=== PATIENT | female | born 1995 | race Caucasian/White ===

== ENCOUNTER 2016-02-28 16:50 | Emergency (ER) | payer MEDICAID ==
--- NOTE | 2016-02-28 19:19 | ER Document Report ---
ED Oral Problem - General Chief Complaint: Toothache Stated Complaint: MOUTH PAIN Time seen by provider: 19:13 Mode of Arrival: Ambulatory Information source: Patient Notes: 21-year-old female presents to ED for toothache and her bottom left jaw #19 for a couple months states it became worse for the last 2 days TRAVEL OUTSIDE OF THE [place] IN LAST 30 DAYS: No - HPI Patient complains to provider of: Jaw pain, Toothache Onset: Other - Couple months worse for the last 2 days Onset: Gradual Quality of pain: Pressure, Sharp, Throbbing Severity: Moderate Pain Level: 4 Associated symptoms: Toothache Worsened by: Cold Relieved by: Nothing Similar symptoms previously: Yes Recently seen / treated by doctor/dentist: No - Related Data Allergies/Adverse Reactions: No Known Allergies Allergy (Verified 02/28/16 17:18) Past Medical History - General Information source: Patient - Social History Smoking Status: Never Smoker Cigarette use (# per day): No Chew tobacco use (# tins/day): No Frequency of alcohol use: None Drug Abuse: None Occupation: [employer] Lives with: Spouse/Significant other Family History: Arthritis, DM Patient has suicidal ideation: No Patient has homicidal ideation: No - Past Medical History Cardiac Medical History: Reports: None Pulmonary Medical History: Reports: None EENT Medical History: Reports: None Neurological Medical History: Reports: None Endocrine Medical History: Reports: None Renal/ Medical History: Reports: None Malignancy Medical History: Reports: None GI Medical History: Reports: None Musculoskeltal Medical History: Reports None Skin Medical History: Reports None Psychiatric Medical History: Reports: Hx Anxiety, Hx Attention Deficit Hyperactivity Disorder - ADD, Hx Depression Traumatic Medical History: Reports: None Infectious Medical History: Reports: None Past Surgical History: Reports: Hx Tonsillectomy - Immunizations Immunizations up to date: No Hx Diphtheria, Pertussis, Tetanus Vaccination: No Review of Systems - Review of Systems Constitutional: No symptoms reported EENT: Dental problem - Dental pain tooth #18 with a small dental abscess. Cardiovascular: No symptoms reported Respiratory: No symptoms reported Gastrointestinal: No symptoms reported Genitourinary: No symptoms reported Female Genitourinary: No symptoms reported Musculoskeletal: No symptoms reported Skin: No symptoms reported Hematologic/Lymphatic: No symptoms reported Neurological/Psychological: No symptoms reported Physical Exam - Vital signs Vitals: Temp Pulse Resp BP Pulse Ox 98.8 F 64 16 117/76 99 02/28/16 17:10 02/28/16 17:10 02/28/16 17:10 02/28/16 17:10 02/28/16 17:10 Course - Vital Signs Vital signs: Temp Pulse Resp BP Pulse Ox 98.5 F 71 15 113/79 99 02/28/16 19:30 02/28/16 19:30 02/28/16 19:30 02/28/16 19:30 02/28/16 19:30 Procedures - Incision and Drainage Left gums Time completed: 19:14 Type: Simple Anesthetic type: Other mL's of anesthetic: 0 Blade size: 11 Incision Method: Incision made with needle Amount/type of drainage: large amount purulent Discharge - Discharge Clinical Impression: Dental abscess, Pain due to dental caries Condition: Stable Disposition: HOME, SELF-CARE Additional Instructions: ABSCESS: You have an abscess (boil). This a pus-forming infection, usually due to staph. Some boils may be left to drain on their own, but most require lancing. From the time the tender lump first appears, it may be three or four days before the abscess is ready to morena. Local heat and rest help at this stage of treatment. An antibiotic may prevent spread of the infection. Once the abscess is opened, packing may be placed into it. This is done so pus is not sealed inside by premature closure of the cavity. The packing will be removed at your follow-up visit or you may be advised to remove it yourself at home. Sometimes this packing must be replaced a few times during healing. The wound will heal with surprisingly little scar. Depending on the size and location of an abscess, healing can take one to four weeks. You may shower and wash the area around the incision site two or three times a day. Antibiotics may be prescribed, but are usually not necessary after an abscess has been drained. If you develop fever, chills, worsening pain, or increasing swelling in the area, call the doctor or return immediately. TOOTHACHE: Your pain is due to dental decay. The tooth must be repaired in order for you to feel better. You will, therefore, be referred to a dentist. We do not have dentists on the staff at [facility]. Severe swelling or drainage around a tooth usually means a dental abscess. This also requires evaluation and treatment by the dentist, but antibiotics may be prescribed while awaiting dental treatment. You should be rechecked immediately if you develop major swelling of the face, increasing pain, a lump in the jaw or gums, headache, difficulty swallowing, or fever. ORAL NARCOTIC MEDICATION: You have been given a prescription for pain control. This medication is a narcotic. It's best taken with food, as nausea can result if taken on an empty stomach. Don't operate machinery or drive within six hours of taking this medication. Do not combine this medicine with alcohol, or with any medication which can cause sedation (such as cold tablets or sleeping pills) unless you get permission from the physician. Narcotics tend to cause constipation. If possible, drink plenty of fluids and eat a diet high in fiber and fruits. Please be aware that prescription narcotics also have the potential for abuse. People become addicted to these medications because of the general sense of wellbeing that they induce. This feeling along with a significant reduction in tension, anxiety, and aggression provides a stimulating seductive quality to these drugs. Once your pain is under control, we encourage you to discard your unused narcotics. PENICILLIN V K: You have been given a prescription for Penicillin VK. Your physician has determined that this is the best antibiotic for your condition. Pen VK can be taken with meals, however more of the antibiotic gets into the bloodstream if it's taken on an empty stomach. Penicillin usually has no side effects. However, allergy to penicillins is common. If you have had an allergic reaction to any drug of the penicillin family, you should never take any other penicillin. Notify your doctor at once if you develop hives, itching, swelling, faintness, or shortness of breath. POST INCISION AND DRAINAGE: You have had an incision made to allow drainage of an abscess. The incision must remain open so that pus and debris can drain from the wound. If the abscess cavity is large, packing is placed. This keeps the tissues from collapsing and trapping pus inside, while the body shrinks the cavity. The packing may need to be replaced every day or two. The physician will instruct you on the packing. Keep a bulky dressing over the area. Replace it if it becomes saturated with blood or pus. Do not disturb the packing (if present). You may shower and cleanse the area with gentle soap and warm water two or three times a day. Local warmth may be soothing, and may promote faster healing. Return if you develop high fever or chills, or if you note spreading redness, increasing swelling, or increasing tenderness. FOLLOW-UP CARE: You have been referred for follow-up care to the dentists listed below. Call the dentists office for an appointment as you were instructed or within the next two days. If you experience worsening or a significant change in your symptoms, notify the physician immediately or return to the Emergency Department at any time for re-evaluation. [facility] [address] [place], [place] Sunday mornings, by appointment [facility] [address] [place] [address] [facility] [address] [facility] [address] [place] [facility] [address] [facility] [email or web address] [address] [place] [address] Sunday- 8:00am to 5:00 pm Will see patients from other [facility]. Charges based on income and family size and accepts Medicare, Medicaid, and Insurances Will pull molars [facility] [address] Hours of Operation 8:00 am - 4:30 pm weekdays The following dental offices accept Medicaid: [facility] Dr. Meneses Dr. Barnes Dr. Snell Dr. Eubanks Inder Mcknight Lutsavage, and Michael oral surgery Dr. Waldrop ([place]) Dr. Garnett ([place]ohanna Dickens) [facility] Drs. Rosales ([place]) Dr. London ([place]) [facility] Dr. Gaming ([place]) Drs. Baugh and ([place]) Medicaid Care Line Prescriptions: Hydrocodone/Acetaminophen [[place] 5-325 mg Tablet] 1 tab PO Q6HP PRN #10 tablet PRN Reason: Penicillin V Potassium [Penicillin Vk 500 mg Tablet] 500 mg PO BID #20 tablet Referrals: SELENE RAMOS MD [Primary Care Provider] - Follow up as needed
[2016-02-28 19:31] VITALS: BP 113/79
== END 2016-02-28 19:30 | disposition home or self-care (01) ==
LOC: ER 16:50
DX: K04.7 Periapical abscess without sinus (principal); K02.9 Dental caries, unspecified; K08.89 Other specified disorders of teeth and supporting structures; R68.84 Jaw pain
CPT/HCPCS: 99282

== ENCOUNTER → 2016-10-03 | Outpatient (CLI) | payer MEDICAID | LOC: OCH 15:01 | DX: O20.0 Threatened abortion (principal) | CPT/HCPCS: 36415; 84702 ==

== ENCOUNTER → 2016-10-06 | Outpatient (CLI) | payer MEDICAID | LOC: OCH 14:53 | DX: O20.0 Threatened abortion (principal) | CPT/HCPCS: 36415; 84702 ==

== ENCOUNTER 2016-11-14 09:15 | Emergency (ER) | payer MEDICAID ==
[2016-11-14 09:31] VITALS: BP 106/61
[2016-11-14] MEDS ORDERED: GUAIFENESIN 600 MG TABLET.SA PO ONE (10:25)
[2016-11-14] MEDS ORDERED: LORATADINE 10 MG TABLET PO ONE (10:25)
[2016-11-14] MEDS ORDERED: NYSTATIN/TRIAMCIN CREAM 15 GM TP ONE (10:25)
[2016-11-14] MEDS ORDERED: IBUPROFEN 800 MG TABLET PO ONE (10:25)
[2016-11-14] MEDS ORDERED: PSEUDOEPHEDRINE HCL 30 MG TABLET PO ONE (10:25)
--- NOTE | 2016-11-14 10:31 | ER Document Report ---
HPI - HPI Patient complains to provider of: cough and cold symptoms with rash to both legs Onset: Last week Onset/Duration: Gradual Quality of pain: Achy Severity: Moderate Pain Level: 3 Associated Symptoms: Nonproductive cough, Rhinnorhea, Sinus pain/drainage, Sore throat, Other - rash to both legs Exacerbated by: Denies Relieved by: Denies Similar symptoms previously: Yes Recently seen / treated by doctor: No - ROS ROS below otherwise negative: Yes - CONSTITUTIONAL Constitutional: REPORTS: Chills. DENIES: Fever - EENT EENT: REPORTS: Sore Throat, Nasal Drainage-Clear, Congestion - NEURO Neurology: DENIES: Headache, Weakness, Vision blurred, Dizzinesss / Vertigo - CARDIOVASCULAR Cardiovascular: DENIES: Chest pain - RESPIRATORY Respiratory: REPORTS: Coughing. DENIES: Trouble Breathing - GASTROINTESTINAL Gastrointestinal: DENIES: Abdominal Pain, Nausea, Patient vomiting, Diarrhea, Constipation, Black / Bloody Stools - URINARY Urinary: DENIES: Dysuria, Urgency, Frequency - REPRODUCTIVE Reproductive: REPORTS: : - MUSCULOSKELETAL Musculoskeletal: DENIES: Extremity pain, Back Pain, Neck Pain, Swelling - DERM Skin Color: Normal Skin Problems: Rash - to both legs Past Medical History - General Information source: Patient - Social History Smoking Status: Never Smoker Cigarette use (# per day): No Chew tobacco use (# tins/day): No Smoking Education Provided: No Frequency of alcohol use: None Drug Abuse: None Occupation: landscaping and car detailing Lives with: Parents Family History: Arthritis, DM. denies: CAD, COPD, CVA, Hyperlipidemia, Hypertension, Malignancy, Thyroid Disfunction Patient has suicidal ideation: No Patient has homicidal ideation: No - Past Medical History Cardiac Medical History: Reports: None Pulmonary Medical History: Reports: None EENT Medical History: Reports: None Neurological Medical History: Reports: None Endocrine Medical History: Reports: None Renal/ Medical History: Reports: None Malignancy Medical History: Reports: None GI Medical History: Reports: None Musculoskeltal Medical History: Reports None Skin Medical History: Reports None Psychiatric Medical History: Reports: Hx Anxiety, Hx Attention Deficit Hyperactivity Disorder - ADD, Hx Depression Traumatic Medical History: Reports: None Infectious Medical History: Reports: None Past Surgical History: Reports: Hx Tonsillectomy - Immunizations Immunizations up to date: No Hx Diphtheria, Pertussis, Tetanus Vaccination: No Vertical Provider Document - CONSTITUTIONAL Agree With Documented VS: Yes Exam Limitations: No Limitations General Appearance: WD/WN, No Apparent Distress - INFECTION CONTROL TRAVEL OUTSIDE OF THE [place]. IN LAST 30 DAYS: No - HEENT HEENT: Atraumatic, Normocephalic, PERRLA. negative: Normal ENT Exam - NECK Neck: Normal Inspection, Supple - RESPIRATORY Respiratory: Breath Sounds Normal, No Respiratory Distress, Chest Non-Tender O2 Sat by Pulse Oximetry: 99 - CARDIOVASCULAR Cardiovascular: Regular Rate, Regular Rhythm, No Murmur - GI/ABDOMEN Gastrointestinal: Abdomen Soft, Abdomen Non-Tender, No Organomegaly, Normal Bowel Sounds - BACK Back: Normal Inspection, Abnormal Inspection - MUSCULOSKELETAL/EXTREMETIES Musculoskeletal/Extremeties: MAEW, FROM, Non-Tender - NEURO Level of Consciousness: Awake, Alert, Appropriate Motor/Sensory: No Motor Deficit, No Sensory Deficit - DERM Integumentary: Rash - to both leg worse on the left Course - Vital Signs Vital signs: Temp Pulse Resp BP Pulse Ox 98.4 F 75 16 106/61 99 11/14/16 09:29 11/14/16 09:29 11/14/16 09:47 11/14/16 09:29 11/14/16 09:29 Discharge - Discharge Clinical Impression: rash both legs URI (upper respiratory infection) Qualifiers: URI type: unspecified URI Qualified Code(s): J06.9 - Acute upper respiratory infection, unspecified Condition: Stable Disposition: HOME, SELF-CARE Instructions: Family Physicians / Practices Additional Instructions: UPPER RESPIRATORY ILLNESS: You have a viral infection of the respiratory passages -- a "cold." This common infection causes nasal congestion, drainage, and often sore throat and cough. It is highly contagious. The disease usually lasts about 10 to 14 days. There is no "cure" for the viral infection -- it must run its course. If there is a complication, such as bacterial infection in the nose, sinuses, middle ear, or bronchial tubes, antibiotics may be required. The antibiotics won't affect the virus. Drink plenty of fluids. A humidifier may help. An expectorant medication or decongestant may make you more comfortable. Use acetaminophen or ibuprofen for fever or aches. See the doctor if fever persists over two days, if there is any significant worsening of your symptoms, or if you simply fail to improve as expected. DECONGESTANT MEDICATION: A decongestant medicine has been suggested. Often this medicine is combined in the same tablet with an antihistamine or expectorant. This type of medicine is helpful in treating a bad cold or sinus condition, as well as in treatment of the nasal congestion of hay fever. It is not of much benefit for lung infections. Decongestant medicines are related to stimulants. They can cause an increase in blood pressure and heart rate. Persons with heart disease and high blood pressure should not take decongestants without discussing this with the physician. If you develop palpitations, chest pain, headache, or tremors, stop the medicine and consult your physician. COUGH-SUPPRESSANT & EXPECTORANT MEDICATION: You are to use a cough medication as needed for relief of symptoms. This medicine is a combination of an expectorant (to make the mucous thinner and more easily "coughed up") and a cough suppressant (to reduce the frequency of coughing). The cough-suppressant medicine is related to narcotics. You may experience mild nausea and sleepiness. Some patients who are very sensitive to narcotics may have stomach pain from this medicine. Taking the medicine with food reduces these side effects. Do not drive or work with machinery until you know how this medicine affects you. The expectorant should have no side effects. Iodine-containing expectorants (such as organidin) should not be taken by persons with active thyroid disease unless approved by your doctor. Call the doctor if you develop shortness of breath, hives, rash, itching, lightheadedness, or severe nausea and vomiting. USE OF ACETAMINOPHEN (Tylenol): Acetaminophen may be taken for pain relief or fever control. It's much safer than aspirin, offering a wider range of "safe" dosages. It is safe during . Some brand names are Tylenol, Panadol, Datril, Anacin 3, Tempra, and Liquiprin. Acetaminophen can be repeated every four hours. The following are maximum recommended dosages: >89 pounds or adults 650 mg to 900 mg Acetaminophen can be repeated every four hours. Maximum dose not to exceed 4000 mg a day. FOLLOW-UP CARE: If you have been referred to a physician for follow-up care, call the physician s office for an appointment as you were instructed or within the next two days. If you experience worsening or a significant change in your symptoms, notify the physician immediately or return to the Emergency Department at any time for re-evaluation. Prescriptions: Nystatin/Triamcin [Mycolog-II Ointment] 1 applic TP BID #1 tube Referrals: EMILIA BLAND MD [Primary Care Provider] - Follow up as needed
== END 2016-11-14 11:04 | disposition home or self-care (01) ==
LOC: ER 09:15
DX: J06.9 Acute upper respiratory infection, unspecified (principal); R21 Rash and other nonspecific skin eruption; J34.89 Other specified disorders of nose and nasal sinuses
CPT/HCPCS: 99282; J3490 ×4

== ENCOUNTER 2017-07-05 10:00 | Emergency (ER) | payer OTHER, MEDICAID ==
[2017-07-05 10:09] VITALS: BP 113/64
[2017-07-05] MEDS ORDERED: KETOROLAC TROMETHAMINE INJ/PF 30 MG/1 ML SDV IM ONE (10:28)
--- NOTE | 2017-07-05 10:33 | ER Document Report ---
ED Neck/Back Problem - General Chief Complaint: Back Pain Stated Complaint: BACK PAIN Time Seen by Provider: 07/05/17 10:21 Mode of Arrival: Ambulatory Information source: Patient TRAVEL OUTSIDE OF THE [place] IN LAST 30 DAYS: No - HPI Patient complains to provider of: Pain, Lower back Onset: Yesterday Where: Work Recent injury: Possibly Notes: Patient is here with complaints of low back pain. She states she has a history of having this in the past. 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 The pain radiates down the left leg. There is no trauma or fall. No abdominal pain. No nausea vomiting. No dysuria or hematuria. No fever. She denies any bowel or bladder dysfunction. No blood thinners. No IV drug use. No rash. Pain is worse with any sort of movement. It is better with heat as well as with the Lidoderm patch she has on her back. She denies any chest pain or shortness of breath. No numbness, tingling, weakness. No other complaints. - Related Data Allergies/Adverse Reactions: No Known Allergies Allergy (Verified 11/14/16 09:29) Past Medical History - Social History Smoking Status: Never Smoker Family History: Arthritis, DM. denies: CAD, COPD, CVA, Hyperlipidemia, Hypertension, Malignancy, Thyroid Disfunction Renal/ Medical History: Denies: Hx Peritoneal Dialysis Psychiatric Medical History: Reports: Hx Anxiety, Hx Attention Deficit Hyperactivity Disorder - ADD, Hx Depression Past Surgical History: Reports: Hx Tonsillectomy - Immunizations Immunizations up to date: No Hx Diphtheria, Pertussis, Tetanus Vaccination: No Review of Systems - Review of Systems -: Yes All other systems reviewed and negative Physical Exam - Vital signs Vitals: Temp Pulse Resp BP Pulse Ox 98.5 F 63 18 113/64 98 07/05/17 10:08 07/05/17 10:08 07/05/17 10:08 07/05/17 10:08 07/05/17 10:08 - Notes Notes: GENERAL: alert, cooperative, nontoxic, no distress. HEAD: normocephalic, atraumatic EYES: conjunctiva pink without discharge, no external redness or swelling. EARS: no external swelling, no external redness NOSE: atraumatic, no external swelling MOUTH/THROAT: mucous membranes moist and pink, posterior pharynx without erythema, swelling, exudate. No trismus or drooling. NECK: soft, supple, full range of motion, no meningismus. CHEST: no distress, lungs clear and equal throughout. No wheezing, rales, rhonchi. CARDIAC: regular rate and rhythm, no murmur, normal capillary refill, normal pulses. No peripheral edema noted. ABDOMEN: soft, nontender, no pusatile mass. BACK: No CVA tenderness. Tenderness along the left lumbar paraspinal muscles. No midline tenderness step-offs or crepitus. No rash. EXTREMITIES: full range of motion of all extremities. No redness, no swelling. NEURO: alert and oriented A&O x 3, no focal deficits, full range of motion of all extremities. 5 out of 5 flexion and extension of the lower extremities bilaterally. Patellar and Achilles deep tendon reflexes are +2 bilaterally. Normal sensation with no saddle anesthesia. Patient can dorsiflex the great toes bilaterally. PYSCH: appropriate mood, affect. Patient is cooperative. SKIN: pink, warm, dry, no rash. Course - Re-evaluation Re-evalutation: 07/05/17 10:31 Patient is nontoxic appearing with stable vitals. She is here with complaints of left low back pain rating down the left leg while she was attempting to put a tire on a rim yesterday at work. No trauma. No sign or risk of cauda equina , epidural abscess/bleed, discitis, osteomyelitis, AAA, pyelonephritis, UTI. Exam is consistent with muscle strain with mild radiculopathy. She has no deficits on exam. This point the patient can be discharged home with NSAIDs and Zanaflex. Follow-up if not better in 1 week, sooner for worsening pain, fever, numbness, tingling, weakness, any further concerns. I offered a work note, the patient declined and states that she needs to go back to work. Did inform her she should avoid any heavy lifting until this is improved. The patient's emergency department workup and current diagnosis were explained to the patient and or family. Follow-up instructions were provided. Medications if prescribed were discussed. Instructions for when to return to the emergency department including specific worrisome symptoms were discussed with the patient and/or family. - Vital Signs Vital signs: Temp Pulse Resp BP Pulse Ox 98.5 F 63 18 113/64 98 07/05/17 10:08 07/05/17 10:08 07/05/17 10:08 07/05/17 10:08 07/05/17 10:08 Discharge - Discharge Clinical Impression: Radicular leg pain Lumbar strain Qualifiers: Encounter type: initial encounter Qualified Code(s): S39.012A - Strain of muscle, fascia and tendon of lower back, initial encounter Condition: Stable Disposition: HOME, SELF-CARE Instructions: Low Back Pain ([facility]), Muscle Strain ([facility]), Warm Packs ([facility]) Additional Instructions: Take medications as prescribed. Avoid heavy lifting. Stretch. Follow-up if not better in 1 week, sooner for worsening pain, fever, numbness, tingling, weakness, bowel or bladder dysfunction, or for any further concerns. Prescriptions: Diclofenac Sodium [Voltaren 50 Mg Tablet.] 50 mg PO BID #20 tablet. Tizanidine HCl [Zanaflex 4 Mg Tablet] 4 mg PO BID PRN #10 tablet PRN Reason: Forms: Elevated Blood Pressure Referrals: [facility] [Provider Group] - Follow up as needed
== END 2017-07-05 10:39 | disposition home or self-care (01) ==
LOC: ER 10:00
DX: S39.012A Strain of muscle, fascia and tendon of lower back, initial encounter (principal); M79.605 Pain in left leg; X58.XXXA Exposure to other specified factors, initial encounter; Y99.0 Civilian activity done for income or pay
CPT/HCPCS: 99283; 96372; J1885

== ENCOUNTER 2017-10-31 14:11 | Emergency (ER) | payer MEDICAID ==
[2017-10-31 14:28] VITALS: BP 116/69
--- NOTE | 2017-10-31 14:50 | ER Document Report ---
HPI - HPI Patient complains to provider of: Vaginal swelling Onset: Other - Sunday Pain Level: 2 Context: 22-year-old nondiabetic had intercourse on Sunday that was not particularly rough or uncomfortable but she now has vaginal introitus swelling and itching, no hx yeast. She thinks her boyfriend cheated on her and so she wants to be checked for STI's. No history of STI's. Denies lesions. No fever or chills. Associated Symptoms: None Exacerbated by: Denies Relieved by: Denies Similar symptoms previously: No Recently seen / treated by doctor: No - ROS ROS below otherwise negative: Yes Systems Reviewed and Negative: Yes All other systems reviewed and negative - REPRODUCTIVE Reproductive: REPORTS: : - DERM Skin Color: Normal Past Medical History - General Information source: Patient - Social History Smoking Status: Current Every Day Smoker Family History: Arthritis, DM Patient has suicidal ideation: No Patient has homicidal ideation: No Renal/ Medical History: Denies: Hx Peritoneal Dialysis Psychiatric Medical History: Reports: Hx Anxiety, Hx Attention Deficit Hyperactivity Disorder - ADD, Hx Depression Past Surgical History: Reports: Hx Tonsillectomy - Immunizations Immunizations up to date: No Hx Diphtheria, Pertussis, Tetanus Vaccination: No Vertical Provider Document - CONSTITUTIONAL Agree With Documented VS: Yes Exam Limitations: No Limitations - INFECTION CONTROL TRAVEL OUTSIDE OF THE [place] IN LAST 30 DAYS: No - NECK Neck: Supple - RESPIRATORY Respiratory: Breath Sounds Normal, No Respiratory Distress - CARDIOVASCULAR Cardiovascular: Regular Rate, Regular Rhythm - GI/ABDOMEN Gastrointestinal: Abdomen Soft, Abdomen Non-Tender, No Organomegaly - REPRODUCTIVE Female Genitalia: Normal Inspection Notes: white thick mucoid vaginal discharge, no introitus swelling - NEURO Level of Consciousness: Awake Course - Re-evaluation Re-evalutation: 10/31/17 gc and chlamydia are negative. tx for yeast. - Vital Signs Vital signs: Temp Pulse Resp BP Pulse Ox 98.1 F 72 16 116/69 100 10/31/17 14:27 10/31/17 14:27 10/31/17 14:27 10/31/17 14:27 10/31/17 14:27 Discharge - Discharge Clinical Impression: Yeast vaginitis, Possible STI exposure Condition: Good Disposition: HOME, SELF-CARE Instructions: Azithromycin ([facility]), Rocephin ([facility]), Topical Antifungal ([facility]), Vaginal Yeast Infection ([facility]) Additional Instructions: Call me in 3 hours for the STI culture results at [phone] Your wet prep shows that she have a yeast vaginitis Cool compress [id number] Monistat for external itching Diflucan 150 mg 1 dose Prescriptions: Fluconazole [Diflucan] 150 mg PO ONCE PRN #1 tablet PRN Reason: Referrals: SELENE RAMOS MD [Primary Care Provider] - Follow up as needed
[2017-10-31] MEDS ORDERED: LIDOCAINE 1% INJ-PF (10 MG/ML) 30 ML SDV INJ ONE (14:51)
[2017-10-31] MEDS ORDERED: AZITHROMYCIN 250 MG TABLET PO ONE (14:51)
[2017-10-31] MEDS ORDERED: CEFTRIAXONE INJ 250 MG VIAL IM ONE (14:51)
[2017-10-31 15:08] LABS: BACTERIA (WET MOUNT) 3+ BACTERIA SEEN; EPITHELIALS (WET MOUNT) 3+ EPITHELIALS SEEN; T.VAGINALIS (WET MOUNT) NO TRICHOMONAS SEEN; WBCS (WET MOUNT) 2+ WBCS SEEN; YEAST (WET MOUNT) YEAST SEEN
[2017-10-31 16:39] LABS: CHLAM PCR NOT DETECTED (NOT DETECT); GON PCR NOT DETECTED (NOT DETECT)
== END 2017-10-31 15:30 | disposition home or self-care (01) ==
LOC: ER 14:11
DX: O23.599 Infection of other part of genital tract in pregnancy, unspecified trimester (principal); B37.3 Candidiasis of vulva and vagina; O99.330 Smoking (tobacco) complicating pregnancy, unspecified trimester; Z20.2 Contact with and (suspected) exposure to infections with a predominantly sexual mode of transmission; Z3A.00 Weeks of gestation of pregnancy not specified
CPT/HCPCS: 99283; 96372; 87210; 87591; 87491; Q0144; J3490; J0696

== ENCOUNTER 2018-01-02 17:23 | Emergency (ER) | payer MEDICAID ==
--- NOTE | 2018-01-02 17:48 | ER Document Report ---
ED Medical Screen (RME) - General Chief Complaint: Puncture Wound Stated Complaint: HAND INJURY Time Seen by Provider: 01/02/18 17:47 Mode of Arrival: Ambulatory Information source: Patient Notes: 22-year-old nondiabetic punctured her left palm with 2 resting nails while lifting up a fence yesterday. She worked again today but 1 of the punctures has gotten swollen red and tender. She does not think she had a tetanus shot in the last 5 years. She is not allergic to antibiotics. I consulted with Dr.' francisco of her eyes and he recommends clindamycin. TRAVEL OUTSIDE OF THE [place] IN LAST 30 DAYS: No - Related Data Allergies/Adverse Reactions: No Known Allergies Allergy (Verified 01/02/18 17:24) Past Medical History Renal/ Medical History: Denies: Hx Peritoneal Dialysis Psychiatric Medical History: Reports: Hx Anxiety, Hx Attention Deficit Hyperactivity Disorder - ADD, Hx Depression Past Surgical History: Reports: Hx Tonsillectomy - Immunizations Immunizations up to date: No Hx Diphtheria, Pertussis, Tetanus Vaccination: No Physical Exam - Vital signs Vitals: Temp Pulse Resp BP Pulse Ox 99.4 F 92 20 114/71 97 01/02/18 17:31 01/02/18 17:31 01/02/18 17:31 01/02/18 17:31 01/02/18 17:31 Course - Vital Signs Vital signs: Temp Pulse Resp BP Pulse Ox 99.4 F 92 20 114/71 97 01/02/18 17:31 01/02/18 17:31 01/02/18 17:31 01/02/18 17:31 01/02/18 17:31 Doctor's Discharge - Discharge Referrals: SELENE RAMOS MD [Primary Care Provider] - Follow up as needed
[2018-01-02] MEDS ORDERED: CLINDAMYCIN 600 MG/D5W RTU 600 MG/50 ML RTUPB IV ONE (17:49)
--- NOTE | 2018-01-02 18:13 | RADIOLOGY REPORT (SQ) ---
EXAM DESCRIPTION: HAND LEFT 3 VIEWS COMPLETED DATE/TIME: 01/02/2018 5:58 pm REASON FOR STUDY: 2 punctures COMPARISON: None. EXAM PARAMETERS: NUMBER OF VIEWS: Three views. TECHNIQUE: AP, lateral and oblique radiographic images acquired of the left hand. LIMITATIONS: None. FINDINGS: MINERALIZATION: Normal. BONES: No acute fracture or dislocation. No worrisome bone lesions. JOINTS: No effusions. SOFT TISSUES: No soft tissue swelling. No foreign body. OTHER: No other significant finding. IMPRESSION: NEGATIVE STUDY OF THE LEFT HAND. NO RADIOGRAPHIC EVIDENCE OF ACUTE INJURY. TECHNICAL DOCUMENTATION: JOB ID: [id number] [employer]- All Rights Reserved Reading location - IP/workstation name: [email or web address]
--- NOTE | 2018-01-02 18:33 | ER Document Report ---
ED Hand/Wrist Injury - General Chief Complaint: Puncture Wound Stated Complaint: HAND INJURY Time Seen by Provider: 01/02/18 17:47 Mode of Arrival: Ambulatory Information source: Patient Notes: Patient is a 22-year-old female presenting to the emergency department for a puncture wound she sustained on her lefthand yesterday while taking down a picket fence. States that her hand was punctured 2 times by nails and fencing 1 of them had no problem and the other one is now red swollen and painful. TRAVEL OUTSIDE OF THE [place] IN LAST 30 DAYS: No - HPI Injury to: Hand Onset: Yesterday Where: Work Timing: Still present, Worse Quality of pain: Sharp, Throbbing Severity: Moderate Pain Level: 3 Context: Other - puncture wound infected left hand - Related Data Allergies/Adverse Reactions: No Known Allergies Allergy (Verified 01/02/18 17:24) Past Medical History - General Information source: Patient - Social History Smoking Status: Never Smoker Chew tobacco use (# tins/day): No Frequency of alcohol use: None Drug Abuse: None Lives with: Family Family History: Arthritis, DM Patient has suicidal ideation: No Patient has homicidal ideation: No - Past Medical History Cardiac Medical History: Reports: None Pulmonary Medical History: Reports: None EENT Medical History: Reports: None Neurological Medical History: Reports: None Endocrine Medical History: Reports: None Renal/ Medical History: Reports: None Malignancy Medical History: Reports: None GI Medical History: Reports: None Musculoskeletal Medical History: Reports None Skin Medical History: Reports None Psychiatric Medical History: Reports: Hx Anxiety, Hx Attention Deficit Hyperactivity Disorder - ADD, Hx Depression Traumatic Medical History: Reports: None Infectious Medical History: Reports: None Past Surgical History: Reports: Hx Tonsillectomy - Immunizations Immunizations up to date: Yes Hx Diphtheria, Pertussis, Tetanus Vaccination: Yes - 01/02/18 Review of Systems - Review of Systems Notes: REVIEW OF SYSTEMS: CONSTITUTIONAL : Denies fever, chills, or sweats. Denies recent illness. EENT: Denies eye, ear, throat, or mouth pain or symptoms. Denies nasal or sinus congestion or discharge. Denies throat, tongue, or mouth swelling or difficulty swallowing. CARDIOVASCULAR: Denies chest pain. Denies palpitations or racing or irregular heart beat. Denies ankle edema. RESPIRATORY: Denies cough, cold, or chest congestion. Denies shortness of breath, difficulty breathing, or wheezing. GASTROINTESTINAL: Denies abdominal pain or distention. Denies nausea, vomiting , or diarrhea. Denies blood in vomitus, stools, or per rectum. Denies black, tarry stools. Denies constipation. GENITOURINARY: Denies difficulty urinating, painful urination, burning, frequency, blood in urine, or discharge. FEMALE GENITOURINARY: Denies vaginal bleeding, heavy or abnormal periods, irregular periods. Denies vaginal discharge or odor. MUSCULOSKELETAL: Denies back or neck pain or stiffness. Denies joint pain or swelling. SKIN: Complains of pain redness swelling and warmth to the left palm just proximal to the thumb. States she was stabbed by a nail in the piece of fencing yesterday. She has 2 puncture wounds 1 of them is not red or swollen and the second 1 is red and swollen. HEMATOLOGIC : Denies easy bruising or bleeding. LYMPHATIC: Denies swollen, enlarged glands. NEUROLOGICAL: Denies confusion or altered mental status. Denies passing out or loss of consciousness. Denies dizziness or lightheadedness. Denies headache. Denies weakness or paralysis or loss of use of either side. Denies problems with gait or speech. Denies sensory loss, numbness, or tingling. Denies seizures. PHYSICAL EXAMINATION: GENERAL: Well-appearing, well-nourished and in no acute distress. HEAD: Atraumatic, normocephalic. EYES: Pupils equal round and reactive to light, extraocular movements intact, conjunctiva are normal. ENT: Nares patent, oropharynx clear without exudates. Moist mucous membranes. NECK: Normal range of motion, supple without lymphadenopathy LUNGS: Breath sounds clear to auscultation bilaterally and equal. No wheezes rales or rhonchi. HEART: Regular rate and rhythm without murmurs ABDOMEN: Soft, nontender, nondistended abdomen. No guarding, no rebound. No masses appreciated. Female : deferred Musculoskeletal: Pain with any range of motion to the left thumb. NEUROLOGICAL: Cranial nerves grossly intact. Normal speech, normal gait. Normal sensory, motor exams PSYCH: Normal mood, normal affect. SKIN: Erythema and swelling and tenderness to the left palm just just proximal to the thumb where she states she was punctured by a nail yesterday. PSYCHIATRIC: Denies anxiety or stress. Denies depression, suicidal ideation, or homicidal ideation. ALL OTHER SYSTEMS REVIEWED AND NEGATIVE. Dictation was performed using [email or web address] voice recognition software Physical Exam - Vital signs Vitals: Temp Pulse Resp BP Pulse Ox 99.4 F 92 20 114/71 97 01/02/18 17:31 01/02/18 17:31 01/02/18 17:31 01/02/18 17:31 01/02/18 17:31 Course - Vital Signs Vital signs: Temp Pulse Resp BP Pulse Ox 98.9 F 87 15 99/60 L 97 01/02/18 20:36 01/02/18 20:36 01/02/18 20:36 01/02/18 20:36 01/02/18 20:36 - Laboratory Result Diagrams: 01/02/18 18:11 01/02/18 18:11 Laboratory results interpreted by me: 01/02/18 18:11 Monocytes % 13.4 H - Diagnostic Test Radiology reviewed: Image reviewed, Reports reviewed Procedures - Incision and Drainage Left Hand palm Time completed: 20:10 Type: Simple Anesthetic type: 1% Lidocaine mL's of anesthetic: 4 Blade size: 11 I&D procedure: Shurclens applied Incision Method: Incision made by scalpel Amount/type of drainage: No drainage noted Notes: 01/03/18 01:55 Wound was well irrigated with saline. Discharge - Discharge Clinical Impression: Puncture wound of left hand with infection Qualifiers: Encounter type: initial encounter Qualified Code(s): S61.432A - Puncture wound without foreign body of left hand, initial encounter Condition: Stable Disposition: HOME, SELF-CARE Additional Instructions: Puncture Wound You have a puncture wound. Because these wounds often penetrate deeply beneath the skin, you must observe them carefully for complications. The wound has been examined for retained foreign material and for damage to tendons and nerves. The area should be rested and elevated for 24 hours. Then you can use the injured part -- if moving it is painfree. Punctures of the hand or foot may require splinting or crutches. The dressing should be changed daily until the wound is healed. Watch for signs of infection. Call the doctor immediately if redness, swelling, warmth, increasing pain, or wound drainage occur. If you develop numbness, persistent bleeding, or inability to move the injured area, please return for prompt re-evaluation. Clindamycin You have been given a prescription for the antibiotic clindamycin. It is often prescribed for infections in the mouth, such as dental infections or abscesses, and for skin infections due to MRSA. It's important that you take all the medication, unless instructed otherwise by your physician. Failure to complete the entire course can result in relapse of your condition. Common side effects of antibiotics include nausea, intestinal cramping, or diarrhea. Women may develop vaginal yeast infections, and babies can get yeast (thrush) in the mouth following the use of antibiotics. Contact your physician if you develop significant side effects from this medication. Allergy to this antibiotic can result in hives, wheezing, faintness, or itching. If symptoms of allergy occur, stop the medication and call the doctor. Epsom Salt Soaks Soak the wound area in a container of warm epsom salt water. If you can't get the wound area into a bucket or biswas, use a folded towel soaked in the epsom salt solution and apply to the area. Use clean hot tap water (about the temperature of a very warm bath), mixing in about one (1) teaspoon for every pint of water. Two gallon --> 16 teaspoons Epsom Salts One gallon --> 8 teaspoons Epsom Salts Two quarts --> 4 teaspoons Epsom Salts One quart --> 2 teaspoons Epsom Salts Soak the wound for about 20 minutes while gently moving it around in the water. Repeat this four (4) times a day. Soap Cleansing Gently wash the wound daily using a mild soap (like Ivory, Phisoderm, Neutrogena). Use warm water, rubbing gently until all debris, ooze, and crusting have been washed from the wound. Allow to dry briefly (about 10 minutes) after cleaning. Repeat this cleansing at least three times a day for the first two days and then once or twice a day. Elevate the Injury Because of the nature of your injury, elevation will be helpful to reduce swelling. This also reduces infection risk in wounds. Keep the injury up above the level of your heart for at least the next 48 hours (or longer if the physician recommends it). FOLLOW-UP CARE: If you have been referred to a physician for follow-up care, call the physician s office for an appointment as you were instructed or within the next two days. If you experience worsening or a significant change in your symptoms, notify the physician immediately or return to the Emergency Department at any time for re-evaluation. Please call primary doctor in the morning and schedule follow-up visit for a within the next 48-72 hours. If you cannot get an appointment follow-up in the emergency room to ensure that she infection is clearing up. Prescriptions: Clindamycin HCl 300 mg PO Q6 #28 capsule Forms: Special Work Note Referrals: SELENE RAMOS MD [ACTIVE STAFF] - Follow up as needed
[2018-01-02 18:35] LABS: ABSOLUTE LYMPHOCYTES (AUTO) 1.7 10^3/uL (0.5-4.7); ABSOLUTE MONOCYTES (AUTO) 0.5 10^3/uL (0.1-1.4); ABSOLUTE NEUT (AUTO) 1.8 10^3/uL (1.7-8.2); BASOPHILS % (AUTO) 0.7 % (0-2); EOSINOPHILS % (AUTO) 0.7 % (0-6); HEMATOCRIT 38.1 % (36.0-47.0); HEMOGLOBIN 13.3 g/dL (12.0-15.5); LYMPHOCYTES % (AUTO) 41.6 % (13-45); MEAN CORPUSCULAR HEMOGLOBIN 29.9 pg (27.0-33.4); MEAN CORPUSCULAR VOLUME 85 fl (80-97); MONOCYTES % (AUTO) 13.4 % (3-13); PLATELET COUNT 287 10^3/uL (150-450); RED BLOOD COUNT 4.46 10^6/uL (3.72-5.28); RED CELL DISTRIBUTION WIDTH 12.8 % (11.5-14.0); SEGMENTED NEUTROPHILS % (AUTO) 43.6 % (42-78); TOTAL CELLS COUNTED % (AUTO) 100 %; WHITE BLOOD COUNT 4.1 10^3/uL (4.0-10.5)
[2018-01-02 18:54] LABS: ANION GAP 17 (5-19); BLOOD UREA NITROGEN 8 mg/dL (7-20); CALCIUM 9.7 mg/dL (8.4-10.2); CARBON DIOXIDE 23 mmol/L (22-30); CHLORIDE 101 mmol/L (98-107); GLUCOSE 88 mg/dL (75-110); POTASSIUM 4.1 mmol/L (3.6-5.0); SODIUM 140.7 mmol/L (137-145)
[2018-01-02 20:38] VITALS: BP 99/60
[2018-01-02] MEDS ORDERED: DIPH/PERTUSS(ACELL)/TETANUS VAC/PF 0.5 ML SYR (>=10YO) IM ONE (20:55)
== END 2018-01-02 21:30 | disposition home or self-care (01) ==
LOC: ER 17:23
DX: S61.432A Puncture wound without foreign body of left hand, initial encounter (principal); W45.0XXA Nail entering through skin, initial encounter; Y93.89 Activity, other specified; Y99.0 Civilian activity done for income or pay
CPT/HCPCS: 99284; 90471; 96365; 36415; 87040; 84703; 85025; 80048; 73130; 90715; 10060; S0077

== ENCOUNTER 2018-06-13 10:57 | Emergency (ER) | payer SELFPAY ==
[2018-06-13 11:14] VITALS: BP 108/65
[2018-06-13] MEDS ORDERED: DEXAMETHASONE SOD PHOS INJ 10 MG/1 ML VIAL IM ONE (12:44)
[2018-06-13] MEDS ORDERED: KETOROLAC TROMETHAMINE 60 MG/2 ML SDV IM ONE (12:44)
[2018-06-13] MEDS ORDERED: LIDOCAINE 5% (700 MG) TRANSDERMAL ADH..PATCH TP ONE (12:45)
--- NOTE | 2018-06-13 12:47 | ER Document Report ---
HPI - HPI Time Seen by Provider: 06/13/18 12:04 Pain Level: 3 Context: Patient is a 23-year-old female with chronic back pain who presents the emergency department with back pain that has increased over the past couple of days. She states that she has had the symptoms for a long time, but has not seen an actual regular doctor for her chronic back pain. She states that it is a sharp pain that she feels in her lower back that shoots down both sides of her legs. She states that 3 years ago she also had an epidural, and has had back pain since then. She has not had an MRI. Denies any weakness, IV drug abuse, or any history of cancer. She does have a family history of herniated disks. She does admit to occasional bladder and bowel loss, but states that this is not a new symptom. Also complains of numbness and tingling. - ROS Systems Reviewed and Negative: Yes All other systems reviewed and negative - CONSTITUTIONAL Constitutional: DENIES: Fever, Chills - EENT EENT: DENIES: Sore Throat - NEURO Neurology: DENIES: Headache - CARDIOVASCULAR Cardiovascular: DENIES: Chest pain - RESPIRATORY Respiratory: DENIES: Coughing - GASTROINTESTINAL Gastrointestinal: DENIES: Abdominal Pain - REPRODUCTIVE Reproductive: DENIES: : - MUSCULOSKELETAL Musculoskeletal: REPORTS: Back Pain. DENIES: Extremity pain, Neck Pain - DERM Skin Color: Normal Skin Problems: None Past Medical History - General Information source: Patient - Social History Smoking Status: Unknown if Ever Smoked Family History: Arthritis, DM Renal/ Medical History: Denies: Hx Peritoneal Dialysis Psychiatric Medical History: Reports: Hx Anxiety, Hx Attention Deficit Hyperactivity Disorder - ADD, Hx Depression Past Surgical History: Reports: Hx Tonsillectomy - Immunizations Immunizations up to date: Yes Hx Diphtheria, Pertussis, Tetanus Vaccination: Yes - 01/02/18 Vertical Provider Document - CONSTITUTIONAL Agree With Documented VS: Yes Exam Limitations: No Limitations General Appearance: No Apparent Distress - INFECTION CONTROL TRAVEL OUTSIDE OF THE [place] IN LAST 30 DAYS: No - HEENT HEENT: Atraumatic, Normocephalic - NECK Neck: Normal Inspection - RESPIRATORY Respiratory: Breath Sounds Normal, No Respiratory Distress - CARDIOVASCULAR Cardiovascular: Regular Rate, Regular Rhythm Pulses: Normal: Radial - BACK Back: Normal Inspection - MUSCULOSKELETAL/EXTREMETIES Musculoskeletal/Extremeties: FROM, Tender - Low back that radiates to bilateral buttocks, consistent with sciatic nerve pain. - NEURO Level of Consciousness: Awake, Alert, Appropriate Motor/Sensory: No Motor Deficit, No Sensory Deficit Deep Tendon Reflexes: 2+ - DERM Integumentary: Warm, Dry Course - Re-evaluation Re-evalutation: 06/13/18 12:47 Differential diagnosis for back pain includes muscle spasm, muscle strain, slipped disc cauda equina syndrome, vertebral fracture, vertebral tumor, epidural abscess, pyelonephritis, or AAA. Based on history and exam, the most likely etiology of the patient's back pain is chronic in nature. Emergent MRI is not indicated at this time because the patient does not have new weakness, or cauda equina syndrome. Patient does not have history of IV drug use, therefore, I do not suspect an epidural abscess. Patient does not have recent weight loss or night sweats, and does not have a known history of cancer. She will be given Toradol, Decadron, and lidocaine patch here in the emergency department. She will also be sent home with lidocaine patches and Flexeril to help with her pain. Verbal discharge instructions were given to the patient. They verbalized understanding. They are stable for discharge. - Vital Signs Vital signs: Temp Pulse Resp BP Pulse Ox 98.7 F 72 16 108/65 98 06/13/18 11:13 06/13/18 11:13 06/13/18 11:13 06/13/18 11:13 06/13/18 11:13 Discharge - Discharge Clinical Impression: Chronic back pain Qualifiers: Back pain location: low back pain Back pain laterality: unspecified Sciatica presence: with sciatica Sciatica laterality: bilateral sciatica Qualified Code(s): M54.41 - Lumbago with sciatica, right side Condition: Stable Disposition: HOME, SELF-CARE Instructions: Ice Packs ([facility]), Warm Packs ([facility]) Additional Instructions: You were seen today in the emergency department for back pain. Your back pain is most consistent with sciatic nerve pain. You may take ibuprofen 600 mg and acetaminophen 1000 mg every 6 hours as needed for the pain. You have been prescribed Flexeril, take as prescribed. You have also been prescribed lidocaine patches. Use as directed. If you decide not to use the lidocaine patches, you may also buy [id number] Aspercreme with lidocaine and apply to the area per box instructions. If you develop a fever greater than 100.4 F, lose bowel or bladder function, are unable to walk, or have any symptoms that are worrisome to you, please return to the emergency department. Try to use a foam roller to help with muscle pain. Stretching Exercises for the Back The physician has recommended that you begin stretching exercises for your back. These are often used even while the back is painful. However, you should notify the physician if the activities seem to increase your pain. PELVIC TILT: Lie flat on your back with knees bent. Tighten your stomach and buttock muscles so it flattens your lower back against the floor. Hold 10 seconds. Repeat 10 times, twice daily. KNEE RAISE: Lying on the back with knees bent, raise one knee to your chest, then the other. Hold both knees against the chest 10 seconds, then lower one knee at a time. Repeat 10 times, twice daily. PARTIAL TRUNK RAISE: Lie face down, arms at your sides. Keeping your waist on the floor, use your arms raise your chest up. Support yourself on your elbows for 30 seconds. Repeat twice daily, increasing the time to two minutes a s you recover. Prescriptions: Cyclobenzaprine HCl [Flexeril 10 mg Tablet] 10 mg PO TIDP PRN #15 tab PRN Reason: Lidocaine [Lidoderm 5% (700 mg) Transdermal Patch] 1 patch TP DAILY PRN #7 adh..patch PRN Reason:
== END 2018-06-13 13:03 | disposition home or self-care (01) ==
LOC: ER 10:57
DX: M54.41 Lumbago with sciatica, right side (principal); M54.9 Dorsalgia, unspecified; M79.604 Pain in right leg; M79.605 Pain in left leg
CPT/HCPCS: 99283; 96372; J1885; J1100

== ENCOUNTER 2018-08-31 16:44 | Emergency (ER) | payer MEDICAID ==
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
[2018-08-31 17:41] LABS: AMORPHOUS SEDIMENT,URINE TRACE /HPF
[2018-08-31 17:47] LABS: ALANINE AMINOTRANSFERASE 16 U/L (9-52); ALBUMIN 4.3 g/dL (3.5-5.0); ALKALINE PHOSPHATASE 45 U/L (38-126); ANION GAP 11 (5-19); ASPARTATE AMINO TRANSFERASE 34 U/L (14-36); BILIRUBIN,DIRECT 0.2 mg/dL (0.0-0.4); BILIRUBIN,TOTAL 1.1 mg/dL (0.2-1.3); BLOOD UREA NITROGEN 8 mg/dL (7-20); CALCIUM 9.7 mg/dL (8.4-10.2); CARBON DIOXIDE 23 mmol/L (22-30); CHLORIDE 102 mmol/L (98-107); GLUCOSE 103 mg/dL (75-110); SODIUM 136.2 mmol/L (137-145); TOTAL PROTEIN 8.1 g/dL (6.3-8.2)
[2018-08-31 17:48] LABS: APPEARANCE,URINE HAZY; BILIRUBIN,URINE NEGATIVE (NEGATIVE); COLOR,URINE YELLOW; GLUCOSE, URINE NEGATIVE (NEGATIVE); KETONES,URINE NEGATIVE (NEGATIVE); URINE SPECIFIC GRAVITY 1.024
[2018-08-31 17:49] LABS: LEUKOCYTE ESTERASE,URINE LARGE (NEGATIVE); NITRITE,URINE NEGATIVE (NEGATIVE); PROTEIN,URINE NEGATIVE (NEGATIVE)
[2018-08-31 19:35] LABS: ABSOLUTE EOSINOPHILS # (AUTO) 0.1 10^3/uL (0.0-0.6); ABSOLUTE LYMPHOCYTES (AUTO) 2.3 10^3/uL (0.5-4.7); ABSOLUTE MONOCYTES (AUTO) 0.7 10^3/uL (0.1-1.4); ABSOLUTE NEUT (AUTO) 5.8 10^3/uL (1.7-8.2); BASOPHILS % (AUTO) 0.4 % (0-2); EOSINOPHILS % (AUTO) 0.6 % (0-6); HEMOGLOBIN 12.3 g/dL (12.0-15.5); LYMPHOCYTES % (AUTO) 25.7 % (13-45); MEAN CORPUSCULAR HEMOGLOBIN 29.9 pg (27.0-33.4); MEAN CORPUSCULAR HGB CONC 34.2 g/dL (32.0-36.0); MEAN CORPUSCULAR VOLUME 87 fl (80-97); MONOCYTES % (AUTO) 8.1 % (3-13); PLATELET COUNT 329 10^3/uL (150-450); RED BLOOD COUNT 4.12 10^6/uL (3.72-5.28); RED CELL DISTRIBUTION WIDTH 13.2 % (11.5-14.0); SEGMENTED NEUTROPHILS % (AUTO) 65.2 % (42-78); TOTAL CELLS COUNTED % (AUTO) 100 %; WHITE BLOOD COUNT 8.9 10^3/uL (4.0-10.5)
[2018-08-31 20:23] VITALS: BP 112/63
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
== END 2018-08-31 20:23 | disposition home or self-care (01) ==
LOC: ER 16:44
DX: O26.891 Other specified pregnancy related conditions, first trimester (principal); R51 Headache; R10.30 Lower abdominal pain, unspecified; R50.9 Fever, unspecified; Y04.2XXA Assault by strike against or bumped into by another person, initial encounter; Z3A.09 9 weeks gestation of pregnancy
CPT/HCPCS: 36415; 76801; 80053; 81001; 84702; 85025; 99284

== ENCOUNTER 2018-11-15 18:19 | Emergency (ER) | payer MEDICAID ==
[2018-11-15] MEDS ORDERED: ACETAMINOPHEN 325 MG TABLET PO ONE (18:29)
--- NOTE | 2018-11-15 18:33 | ER Document Report ---
ED Medical Screen (RME) - General Chief Complaint: Dizziness Stated Complaint: DIZZY Time Seen by Provider: 11/15/18 18:23 Mode of Arrival: Wheelchair Information source: Patient Notes: This 23-year-old female 1 weeks G2, P1 presents to the emergency department with complaints of feeling dizzy since yesterday. 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 She also complains of diarrhea for the past week. Denies recent antibiotics denies recent trip. Denies vomiting fever. Reports this is her second . Reports first was good no complications. I have greeted and performed a rapid initial assessment of this patient. A comprehensive ED assessment and evaluation of the patient, analysis of test results and completion of the medical decision making process will be conducted by additional ED providers. Dictation of this chart was performed using voice recognition software; therefore, there may be some unintended grammatical errors. TRAVEL OUTSIDE OF THE [place] IN LAST 30 DAYS: No - Related Data Allergies/Adverse Reactions: No Known Allergies Allergy (Verified 11/15/18 18:22) Past Medical History Renal/ Medical History: Denies: Hx Peritoneal Dialysis Psychiatric Medical History: Reports: Hx Anxiety, Hx Attention Deficit Hyperactivity Disorder - ADD, Hx Depression Past Surgical History: Reports: Hx Tonsillectomy - Immunizations Immunizations up to date: Yes Hx Diphtheria, Pertussis, Tetanus Vaccination: Yes - 01/02/18 Physical Exam - Vital signs Vitals: Temp Pulse Resp BP Pulse Ox 98.3 F 87 18 111/66 95 11/15/18 18:20 11/15/18 18:20 11/15/18 18:20 11/15/18 18:20 11/15/18 18:20 Course - Vital Signs Vital signs: Temp Pulse Resp BP Pulse Ox 98.3 F 87 18 111/66 95 11/15/18 18:20 11/15/18 18:20 11/15/18 18:20 11/15/18 18:20 11/15/18 18:20
[2018-11-15 19:51] LABS: ABSOLUTE EOSINOPHILS # (AUTO) 0.1 10^3/uL (0.0-0.6); ABSOLUTE LYMPHOCYTES (AUTO) 2.1 10^3/uL (0.5-4.7); ABSOLUTE MONOCYTES (AUTO) 0.6 10^3/uL (0.1-1.4); ABSOLUTE NEUT (AUTO) 4.4 10^3/uL (1.7-8.2); BASOPHILS % (AUTO) 0.5 % (0-2); EOSINOPHILS % (AUTO) 0.7 % (0-6); HEMATOCRIT 32.6 % (36.0-47.0); HEMOGLOBIN 11.1 g/dL (12.0-15.5); LYMPHOCYTES % (AUTO) 28.6 % (13-45); MEAN CORPUSCULAR HEMOGLOBIN 29.4 pg (27.0-33.4); MEAN CORPUSCULAR HGB CONC 34.1 g/dL (32.0-36.0); MEAN CORPUSCULAR VOLUME 86 fl (80-97); MONOCYTES % (AUTO) 8.8 % (3-13); PLATELET COUNT 317 10^3/uL (150-450); RED BLOOD COUNT 3.78 10^6/uL (3.72-5.28); SEGMENTED NEUTROPHILS % (AUTO) 61.4 % (42-78); TOTAL CELLS COUNTED % (AUTO) 100 %; WHITE BLOOD COUNT 7.2 10^3/uL (4.0-10.5)
[2018-11-15 19:55] LABS: ALBUMIN 3.7 g/dL (3.5-5.0); ALKALINE PHOSPHATASE 49 U/L (38-126); ANION GAP 11 (5-19); ASPARTATE AMINO TRANSFERASE 22 U/L (14-36); BILIRUBIN,DIRECT 0.1 mg/dL (0.0-0.4); BILIRUBIN,TOTAL 0.6 mg/dL (0.2-1.3); BLOOD UREA NITROGEN 6 mg/dL (7-20); CALCIUM 9.2 mg/dL (8.4-10.2); CARBON DIOXIDE 22 mmol/L (22-30); CHLORIDE 103 mmol/L (98-107); GLUCOSE 85 mg/dL (75-110); POTASSIUM 3.4 mmol/L (3.6-5.0); TOTAL PROTEIN 7.1 g/dL (6.3-8.2)
[2018-11-15 20:30] LABS: APPEARANCE,URINE SLIGHTLY-CLOUDY; BILIRUBIN,URINE NEGATIVE (NEGATIVE); COLOR,URINE YELLOW; GLUCOSE, URINE NEGATIVE (NEGATIVE); KETONES,URINE NEGATIVE (NEGATIVE); LEUKOCYTE ESTERASE,URINE MODERATE (NEGATIVE); NITRITE,URINE NEGATIVE (NEGATIVE); PROTEIN,URINE 30 mg/dL (NEGATIVE); URINE SPECIFIC GRAVITY 1.026
[2018-11-15] MEDS ORDERED: DEXTROSE 5%-LACTATED RINGERS 1,000 ML IV ONE (21:01)
[2018-11-15] MEDS ORDERED: DIPHENHYDRAMINE HCL 50 MG/ML VIAL IV ONE (21:05)
--- NOTE | 2018-11-15 21:16 | ER Document Report ---
ED Dizziness/Weakness - General Chief Complaint: Dizziness Stated Complaint: DIZZY Time Seen by Provider: 11/15/18 18:23 Primary Care Provider: MACKENZIE RIVERA CNM [Primary Care Provider] - Follow up as needed Mode of Arrival: Wheelchair Information source: Patient Notes: Patient presents with dizziness and spinning that started this morning. She is 20 weeks G2, P1. She has a mild frontal headache. No changes in hearing. No ear pain. No rashes. No trauma. Good care including a normal ultrasound a few days ago. She is currently on vitamins. No new medications. She is concerned because she is on ladders at work and got dizzy while on a ladder. No chest pain or shortness of breath. No urinary complaints. No dysuria. No neck pain. No other complaints. No rashes. TRAVEL OUTSIDE OF THE [place] IN LAST 30 DAYS: No - HPI Patient complains to provider of: Dizziness, Vertigo Onset: This morning - Related Data Allergies/Adverse Reactions: No Known Allergies Allergy (Verified 11/15/18 18:22) Past Medical History - General Information source: Patient - Social History Smoking Status: Never Smoker Family History: Arthritis, DM Patient has suicidal ideation: No Patient has homicidal ideation: No Renal/ Medical History: Denies: Hx Peritoneal Dialysis Psychiatric Medical History: Reports: Hx Anxiety, Hx Attention Deficit Hyperactivity Disorder - ADD, Hx Depression Past Surgical History: Reports: Hx Tonsillectomy - Immunizations Immunizations up to date: Yes Hx Diphtheria, Pertussis, Tetanus Vaccination: Yes - 01/02/18 Review of Systems - Review of Systems Constitutional: denies: Chills, Fever -: Yes All other systems reviewed and negative Physical Exam - Vital signs Vitals: Temp Pulse Resp BP Pulse Ox 98.3 F 87 18 111/66 95 11/15/18 18:20 11/15/18 18:20 11/15/18 18:20 11/15/18 18:20 11/15/18 18:20 Interpretation: Normal - General General appearance: Appears well, Alert - HEENT Head: Normocephalic, Atraumatic. No: Tenderness Eyes: Normal Conjunctiva: Normal Extraocular movements intact: Yes Pupils: PERRL Ears: Normal External canal: Normal Tympanic membrane: Normal Hearing loss: No: Left, Right Nasal: Normal Mucous membranes: Normal Pharynx: Normal Neck: Normal - Respiratory Respiratory status: No respiratory distress Chest status: Nontender Breath sounds: Normal Chest palpation: Normal - Cardiovascular Rhythm: Regular Heart sounds: Normal auscultation Murmur: No - Abdominal Inspection: Normal, Gravid female Distension: No distension Bowel sounds: Normal Tenderness: Nontender - Back Back: Normal, Nontender - Extremities General upper extremity: Normal inspection, Nontender, Normal color, Normal ROM, Normal temperature General lower extremity: Normal inspection, Nontender, Normal color, Normal ROM, Normal temperature, Normal weight bearing. No: Juanito's sign - Neurological Neuro grossly intact: Yes Cognition: Normal Orientation: AAOx4 [place] Coma Scale Eye Opening: Spontaneous [place] Coma Scale Verbal: Oriented Sarah Coma Scale Motor: Obeys Commands [place] Coma Scale Total: 15 Speech: Normal Motor strength normal: LUE, RUE, LLE, RLE Sensory: Normal - Psychological Associated symptoms: Normal affect, Normal mood - Skin Skin Temperature: Warm Skin Moisture: Dry Skin Color: Normal Course - Re-evaluation Re-evalutation: 11/15/18 21:15 EKG per my interpretation shows normal sinus rhythm at a rate of 85 with a left axis deviation. Lab work reviewed including a dirty urine. I elected not to treat the dirty urine because the patient has no urinary complaints. The urinalysis shows increased specific gravity for which I have ordered 1 L of D5 LR. I have also ordered IV Benadryl for symptomatic relief. Patient is currently stable. 11/15/18 22:47 Patient feels better after IV fluids and Benadryl. Will discharge home with follow-up with her OB tomorrow. Patient will return at once if worse or any symptoms. - Vital Signs Vital signs: Temp Pulse Resp BP Pulse Ox 98.3 F 87 18 111/66 95 11/15/18 18:20 11/15/18 18:20 11/15/18 18:20 11/15/18 18:20 11/15/18 18:20 - Laboratory Result Diagrams: 11/15/18 19:20 11/15/18 19:20 Laboratory results interpreted by me: 11/15/18 11/15/18 11/15/18 19:20 19:20 20:15 Hgb 11.1 L Hct 32.6 L Sodium 135.7 L Potassium 3.4 L BUN 6 L Urine Protein 30 H Urine Urobilinogen 4.0 H Ur Leukocyte Esterase MODERATE H Urine Ascorbic Acid 20 H Discharge - Discharge Clinical Impression: Dizziness, Vertigo, Condition: Good Disposition: HOME, SELF-CARE Instructions: Dizziness ([facility]), Vertigo ([facility]) Additional Instructions: Return at once if worse or new symptoms. See your OB tomorrow for recheck. Referrals: MACKENZIE RIVERA CNM [Primary Care Provider] - Follow up as needed
--- NOTE | 2018-11-15 22:29 | EKG REPORT ---
SEVERITY:- OTHERWISE NORMAL ECG - SINUS RHYTHM LEFT AXIS DEVIATION : Confirmed by: Dylan Johnson MD 15-Nov-2018 22:28:38
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
[2018-11-15 23:22] VITALS: BP 103/59
== END 2018-11-15 23:20 | disposition home or self-care (01) ==
LOC: ER 18:19
DX: O26.892 Other specified pregnancy related conditions, second trimester (principal); R42 Dizziness and giddiness; R51 Headache; Z3A.20 20 weeks gestation of pregnancy
CPT/HCPCS: 93005; 36415; 85025; 80053; 81001; 76805; 93976; 93010; J3490; J1200; J7121; 96361; 96374; 99284

== ENCOUNTER 2019-03-25 05:38 | Inpatient (IN) | payer OTHER, MEDICAID ==
[2019-03-25 06:37] LABS: APPEARANCE,URINE CLOUDY; BILIRUBIN,URINE NEGATIVE (NEGATIVE); COLOR,URINE AMBER; GLUCOSE, URINE NEGATIVE (NEGATIVE); KETONES,URINE NEGATIVE (NEGATIVE); LEUKOCYTE ESTERASE,URINE NEGATIVE (NEGATIVE); NITRITE,URINE NEGATIVE (NEGATIVE); PROTEIN,URINE 100 mg/dL (NEGATIVE); URINE SPECIFIC GRAVITY 1.017
[2019-03-25 06:50] LABS: URINE AMPHETAMINES SCREEN NEGATIVE; URINE BARBITURATES SCREEN NEGATIVE; URINE BENZODIAZEPINES SCREEN NEGATIVE; URINE COCAINE SCREEN NEGATIVE; URINE MARIJUANA (THC) SCREEN NEGATIVE; URINE METHADONE SCREEN NEGATIVE; URINE PHENCYCLIDINE SCREEN NEGATIVE
--- NOTE | 2019-03-25 07:13 | Admission Physical ---
Datetime Report Generated by CPN: 03/25/2019 07:13 CURRENT ADMISSION Chief Complaint: Suspected Ruptured Membranes Indication for Induction: Not Applicable Admit Impression : Term, Intrauterine ; Ruptured Membranes Admit Plan: Admit to Unit ALLERGIES Medication Allergies: No Known Allergies (03/25/2019) OBSTETRICAL HISTORY EDC: 04/06/2019 00:00 : 3 Para: 1 Term: 1 : 0 SAB: 1 IAB: 0 Ectopic: 0 Livin Cesareans: 0 VBACs: 0 Multiple Births: 0 PHYSICAL EXAM General: Normal HEENT: Normal Neurologic: Normal Thyroid: Normal Heart: Normal Lungs: Normal Breast: Deferred Back: Normal Abdomen: Normal Genitourinary Exam: Normal Extremities: Normal DTRs: Normal Pelvic Type: Adequate Vital Signs: Reviewed VAGINAL EXAM Dilatation: 1 Effacement: 25 Station: -3 MEMBRANES Pooling: Positive Membranes: Ruptured FETUS A EGA: 38.2 Monitoring: External US FHR- Baseline: 130 Variability: Moderate 6-25bpm Decelerations: None FHR Category: Category I Estimated Weight (gm): 4603 Presentation: Vertex Admit Comment: Admit most likely for primary c section for macrosomia. INFORMED CONSENT Signature: with User ID: [email or web address]
[2019-03-25] MEDS ORDERED: CEFAZOLIN SODIUM 2 GM in DEXTROSE 5%-WATER 50 ML IV PRN (07:39)
[2019-03-25 08:33] LABS: ABSOLUTE LYMPHOCYTES (AUTO) 1.4 10^3/uL (0.5-4.7); ABSOLUTE MONOCYTES (AUTO) 0.5 10^3/uL (0.1-1.4); ABSOLUTE NEUT (AUTO) 5.1 10^3/uL (1.7-8.2); BASOPHILS % (AUTO) 0.2 % (0-2); EOSINOPHILS % (AUTO) 0.2 % (0-6); HEMOGLOBIN 12.4 g/dL (12.0-15.5); LYMPHOCYTES % (AUTO) 20.7 % (13-45); MEAN CORPUSCULAR HEMOGLOBIN 30.8 pg (27.0-33.4); MEAN CORPUSCULAR HGB CONC 34.4 g/dL (32.0-36.0); MEAN CORPUSCULAR VOLUME 89 fl (80-97); MONOCYTES % (AUTO) 6.5 % (3-13); PLATELET COUNT 234 10^3/uL (150-450); RED BLOOD COUNT 4.03 10^6/uL (3.72-5.28); RED CELL DISTRIBUTION WIDTH 13.9 % (11.5-14.0); SEGMENTED NEUTROPHILS % (AUTO) 72.4 % (42-78); TOTAL CELLS COUNTED % (AUTO) 100 %
[2019-03-25] MEDS ORDERED: CEFAZOLIN 1 GM/D5W RTU 2 GM/100 ML RTUPB IV ONE (08:50)
[2019-03-25] MEDS ORDERED: PHENYLEPHRINE HCL INJ/PF 10 MG/1 ML SDV ONE (09:23)
[2019-03-25] MEDS ORDERED: OXYTOCIN 10 UNIT/ML VIAL ONE (09:23)
[2019-03-25] MEDS ORDERED: KETOROLAC TROMETHAMINE INJ/PF 30 MG/1 ML SDV ONE (09:23)
[2019-03-25] MEDS ORDERED: ONDANSETRON HCL INJ/PF 4 MG/2 ML SDV ONE (09:23)
[2019-03-25] MEDS ORDERED: FENTANYL CITRATE INJ/PF 100 MCG/2 ML AMPUL ONE ×2 (09:23→12:41)
[2019-03-25] MEDS ORDERED: ACETAMINOPHEN 1,000 MG/100 ML RTUPB IV ONE (09:23)
[2019-03-25] MEDS ORDERED: AZITHROMYCIN INJ 500 MG VIAL IV ONE ×2 (09:27→09:28)
[2019-03-25] MEDS ORDERED: OXYTOCIN/NORMAL SALINE 20 UNIT/1,000 ML RTUINJ IV PRN (11:26)
[2019-03-25] MEDS ORDERED: HYDROMORPHONE HCL INJ/PF 2 MG/ML AMPULE IV PRN ×2 (11:26→19:03)
[2019-03-25] MEDS ORDERED: MEASLES,MUMPS&RUBELLA VACC/PF 0.5 ML VIAL SUBCUT PRN (11:26)
[2019-03-25] MEDS ORDERED: OXYCODONE-ACETAMINOPHEN 5-325 MG TABLET PO PRN (11:26)
[2019-03-25] MEDS ORDERED: DIPH/PERTUSS(ACELL)/TETANUS VAC/PF 0.5 ML SYR (>=10YO) IM PRN (11:26)
[2019-03-25] MEDS ORDERED: PROMETHAZINE HCL INJ 25 MG/1 ML VIAL IV PRN (11:26)
[2019-03-25] MEDS ORDERED: ACETAMINOPHEN 325 MG TABLET PO PRN (11:26)
--- NOTE | 2019-03-25 11:40 | Operative Report ---
Operative Report DATE OF SURGERY: 03/25/19 PREOPERATIVE DIAGNOSIS: Intrauterine at 38.0 weeks EGA. Macrosomia POSTOPERATIVE DIAGNOSIS: Same as above OPERATION: Primary section SURGEON: SAHRA SANDOVAL ANESTHESIA: Spinal TISSUE REMOVED OR ALTERED: Placenta COMPLICATIONS: None ESTIMATED BLOOD LOSS: 550 INTRAOPERATIVE FINDINGS: Normal appearing uterus, ovaries and bilateral fallopian tubes. Viable male in vertex presentation, weight 10 lb 2 oz or 4592 gms. Amniotic fluid clear PROCEDURE: IV fluids: per anesthesia record Urinary output: 220 cc Findings: Normal-appearing uterus bilateral fallopian tubes and ovaries. Viable male infant with weight 4592 gms Position: To recovery room in stable condition Description of procedure: The patient was taken to the operating room and spinal anesthesia was administered and found to be adequate. She was then placed on the OR table in the supine position with a slight leftward tilt. Patient was prepped and draped in usual sterile fashion. Ancef 2 gms was given IV prior to the procedure for infection prophylaxis along with Azithromycin 500mg IV x1. Timeout was taken. A Pfannenstiel skin incision was then made approximately 3 cm above the pubic symphysis and carried down to level the rectus fascia. The rectus fascia was then nicked in the midline with a scalpel and the fascial incision was extended laterally with use of curved Preston scissors. The rectus fascia was then grasped with 2 Kocker clamps elevated and the underlying rectus muscle was dissected off both bluntly and sharply. Any bleeding controlled with cautery. The rectus muscles were then split in the midline and the peritoneum was entered. The peritoneal incision was then extended by manually stretching the peritoneum. The bladder blade was positioned. Bladder flap created and the bladder was noted to be out of harm's way. A scalpel was then used in the lower uterine for the hysterotomy, slowly until amniotomy was obtained. A large amount of fluid was noted. The uterine incision was then manually stretched. The infant was noted to be in vertex postion. Using a hand deep in pelvis, the head was elevated and brought to the hysterotomy incision. The head then delivered with some difficulty as the head was large. A vacuum was called for but not ultimately needed. The shoulders were large and the anterior arm was delivered to assist with delivery of the shoulders. The rest of the body followed immediately. The cord was cut clamped and the was handed off to the nurse awaiting. Infant was crying prior to hand off. The placenta was manually delivered. Using a lap gauze the uterus was cleared of all clots and debris. The uterus was then exteriorized and a bladder blade was repositioned. The uterine incision was then closed with 0 Chromic suture in a running locked fashion. A second layer of the same suture was used in a running locked imbricated fashion. The uterine incision was inspected and some bleeding noted left side of incision. A box stitch was placed in this area and hemostasis obtained. The posterior aspect of the uterus was then inspected and anatomy was seen as above. The uterus was returned to its normal anatomic position within the abdominal cavity. Warm saline irrigation was used to clear all clots and debris from the abdomen. The uterine incision was inspected once more and noted to remain hemostatic. The bladder blade was removed and the peritoneum was closed with 2-0 chromic in a running fashion. The rectus muscles were then reapproximated and the rectus fascia was closed with a #1 PDS in a running fashion. The subcutaneous tissue was then inspected and any bleeding was controlled with Bovie electrocautery. The subcutaneous tissue was then closed with 2-0 Plain Gut suture in a running fashion. The skin was then closed with 3-0 Monocryl in a running subcuticular fashion. The skin incision was then clean dried and Dermabond was applied over the skin incision. All instrument sponge and needle counts were correct x3 for the procedure the patient tolerated the procedure well. She will proceed to recovery room in stable condition
--- NOTE | 2019-03-25 11:53 | Delivery Summary ---
Del Sum A-C Datetime Report Generated by CPN: 03/25/2019 11:53 DELIVERY PERSONNEL DELIVERY PERSONNEL: [id number] Delivery Doctor:: Georgina Mariee MD Anesthesiologist:: Kinza Portillo MD CORPORATE ACCOUNTING MANAGER:: Lo Pacheco CORPORATE ACCOUNTING MANAGER Associate Director Regulatory Affairs:: Jennifer Montes, RN Fibrous Wallboard Inspector/ACID TREATER: Nicolasa Bentley, ST Fibrous Wallboard Inspector/ACID TREATER: Shakila Rodarte, RN INTERNATIONAL MATERNAL INFORMATION Delivery Anesthesia: Spinal Medications After Delivery: Other-Please Comment Meds After Delivery Comment: See Anesthesia flowsheet Maternal Complications: None LABOR SUMMARY EDC: 04/06/2019 00:00 No. Babies in Womb: 1 Attempted: No Labor Anesthesia: None LABOR INFORMATION Reason for Induction: Not Applicable Onset of Labor: 03/25/2019 04:20 Oxytocin: N/A Group B Beta Strep: pos Antibiotics # of Doses: 1 Antibiotics Time of Last Dose: 03 Name of Antibiotic Given: Ancef Steroids Given: None Reason Steroids Not Administered: Not Applicable MEMBRANES Membranes Rupture Method: Spontaneous Rupture of Membranes: 03/25/2019 04:20 Length of Rupture (hr): 6.07 Amniotic Fluid Color: Light Meconium Amniotic Fluid Amount: Moderate Amniotic Fluid Odor: None STAGES OF LABOR Stage 3 hr: 0 Stage 3 min: 2 Total Time in Labor hr: 6 Total Time in Labor min: 6 VAGINAL DELIVERY Episiotomy: None Laceration #1: None Laceration Extension #1: N/A Sponge Count Correct: N/A Sharps Count Correct: N/A CSECTION DELIVERY Primary Indication: Other Other Primary Indication: Elective Other Secondary Indication: LGA CSection Incision: Lower Uterine Transverse BABY A INFORMATION Infant Delivery Date/Time: 03/25/2019 10:24 Method of Delivery: Born in Route : No : N/A Forceps: N/A Vacuum Extraction: Failed Shoulder Dystocia : No PRESENTATION/POSITION BABY A Presentation: Cephalic Cephalic Presentation: Vertex Breech Presentation: N/A PLACENTA INFORMATION BABY A Placenta Delivery Time : 03/25/2019 10:26 Placenta Method of Delivery: Manual Removal Placenta Status: Delivered SCORES BABY A Heart Rate 1 min: >100 bpm Resp Effort 1 min: Good Cry Reflex Irritability 1 min: Cough or Sneeze or Pulls Away Muscle Tone 1 min: Active Motion Color 1 min: Body [place], Extremities Blue SCORE 1 MIN: 9 Heart Rate 5 min: >100 bpm Resp Effort 5 min: Good Cry Reflex Irritability 5 min: Cough or Sneeze or Pulls Away Muscle Tone 5 min: Active Motion Color 5 min: Body [place], Extremities Blue SCORE 5 MIN: 9 INFANT INFORMATION BABY A Gestational Age at Delivery: 38.2 Gestational Status: Early Term- 37- 38.6 Weeks Infant Outcome : Liveborn Condition : Stable Sex: Male WEIGHT/LENGTH BABY A Birthweight (gm): 4605 Weight (lb): 10 Weight (oz): 2 Infant Length (in): 21.00 Infant Length (cm): 53.34 CORD INFORMATION BABY A No. Cord Vessels: 3 Nuchal Cord : N/A Cord Blood Taken: Yes-For Storage (Mom's Blood type +) BABY B INFORMATION : N/A
[2019-03-25] MEDS ORDERED: NALOXONE HCL INJ/PF 0.4 MG/1 ML SDV ONE ×2 (13:50→13:53)
[2019-03-25] MEDS ORDERED: FENTANYL CITRATE INJ/PF 100 MCG/2 ML AMPUL IV ONE (14:00)
[2019-03-25 14:18] LABS: ARTERIAL BLOOD BASE EXCESS -4.8 mmol/L; ARTERIAL BLOOD H2CO3 0.91 mmol/L (1.05-1.35); ARTERIAL BLOOD HCO3 18.8 mmol/L (20-24); ARTERIAL BLOOD O2 SATURATION 98.9 % (94-98); ARTERIAL BLOOD PCO2 30.2 mmHg (35-45); ARTERIAL BLOOD PH 7.41 (7.35-7.45); ARTERIAL BLOOD TOTAL CO2 19.7 mmol/L (21-25)
[2019-03-25 14:22] LABS: ARTERIAL BLOOD FIO2 4L
[2019-03-25 14:29] LABS: ABSOLUTE LYMPHOCYTES (AUTO) 2.4 10^3/uL (0.5-4.7); ABSOLUTE MONOCYTES (AUTO) 0.6 10^3/uL (0.1-1.4); ABSOLUTE NEUT (AUTO) 7.9 10^3/uL (1.7-8.2); BASOPHILS % (AUTO) 0.2 % (0-2); EOSINOPHILS % (AUTO) 0.1 % (0-6); HEMATOCRIT 27.9 % (36.0-47.0); LYMPHOCYTES % (AUTO) 22.2 % (13-45); MEAN CORPUSCULAR HEMOGLOBIN 31.5 pg (27.0-33.4); MEAN CORPUSCULAR HGB CONC 34.8 g/dL (32.0-36.0); MEAN CORPUSCULAR VOLUME 91 fl (80-97); MONOCYTES % (AUTO) 5.9 % (3-13); PLATELET COUNT 274 10^3/uL (150-450); RED BLOOD COUNT 3.08 10^6/uL (3.72-5.28); RED CELL DISTRIBUTION WIDTH 13.6 % (11.5-14.0); SEGMENTED NEUTROPHILS % (AUTO) 71.6 % (42-78); TOTAL CELLS COUNTED % (AUTO) 100 %
[2019-03-25 14:33] LABS: HEMOGLOBIN 9.7 g/dL (12.0-15.5)
[2019-03-25] MEDS: IBUPROFEN 800 MG TABLET PO SCH ×2 (15:21→21:45)
[2019-03-25] MEDS: OXYCODONE-ACETAMINOPHEN 5-325 MG TABLET PO PRN (15:50)
[2019-03-25] MEDS ORDERED: LORAZEPAM INJ 2 MG/1 ML VIAL ONE (17:32)
[2019-03-25] MEDS ORDERED: LORAZEPAM INJ 2 MG/1 ML VIAL IV ONE (17:45)
--- NOTE | 2019-03-25 18:48 | CRITICAL CARE ADMISSION REPORT ---
HPI Date:: 03/25/19 - Critical Care Attending Time:: 18:29 Reason for ICU Reason:: Hypotension, s/p HPI: Pt is a 24 yo woman s/p today at 38 weeks for macrosomia. She gave to a 10 pound baby. In the PACU, per report, she got 100 mcg of fe ntanyl. Shortly thereafter, after being tranferred to her room, she lost consciousness and was found to have a SBP in the 70s. Her OB, Dr. Mariee, was at the bedside. Pt was given IVF and given narcan with some response. Her Hg was noted to be 12.4 at that time. No signs of bleeding per exam. Pt later became hypotensive, requiring more IVF. It was felt that pt's hypotension was due to her sensitivity to narcotic pain medications. Repeat Hg is 9.7. Staff reports that her fundus is firm, her operative site looks good, and there is scant vaginal bleeding. Dr. Mariee called me and requested transfer to the ICU. I went to evaluate pt in her room, 214. Upon my assessment, she is in moderate distress, she refuses to talk b/c she is in severe pain. She endorses abdominal pain and mild chest pain. She is tachypneic and tachycardic. Her family is at the bedside. - Diagnosis/Plan (1) 38 weeks gestation of Is this a current diagnosis for this admission?: Yes (2) S/P Is this a current diagnosis for this admission?: Yes (3) Hypotension Is this a current diagnosis for this admission?: Yes Past Medical History Psychiatric Medical History: Reports: Attention Deficit Hyperactivity Disorder - ADD, Depression Past Surgical History Past Surgical History: Reports: Tonsillectomy Social/Family History - Social History Smoking Status: Never Smoker - Medication/Allergies Home Medications: Vits96/Iron Fum/Folic [ Tablet] 1 tab PO DAILY 08/31/18 Allergies/Adverse Reactions: No Known Allergies Allergy (Verified 03/25/19 05:52) Review of Systems Review of Systems: per HPI Physical Exam Vital Signs: Temp Pulse Resp BP Pulse Ox 97.5 F 74 16 110/73 100 03/25/19 13:24 03/25/19 13:38 03/25/19 13:38 03/25/19 13:38 03/25/19 13:38 Intake & Output 03/24/19 03/25/19 03/26/19 06:59 06:59 06:59 Output Total 150 Balance -150 Weight 101 kg Weight/Height Weight 101 kg Height 5 ft 8 in General appearance: PRESENT: well-developed, well-nourished, other - awake, alert, moderate distress, tachypneic Head exam: PRESENT: atraumatic, normocephalic Respiratory exam: PRESENT: crackles, tachypnea Cardiovascular exam: PRESENT: tachycardia GI/Abdominal exam: PRESENT: other - abdomen distended, s/p LTCS, no bleeding from incision Musculoskeletal exam: PRESENT: other - no edema Laboratory/Radiographs Laboratory Results: 03/25/19 14:18 03/25/19 03/25/19 03/25/19 05:53 08:14 08:14 WBC 7.0 RBC 4.03 Hgb 12.4 Hct 36.0 MCV 89 MCH 30.8 MCHC 34.4 RDW 13.9 Plt Count 234 Seg Neutrophils % 72.4 Carbonic Acid HCO3/H2CO3 Ratio ABG pH ABG pCO2 ABG pO2 ABG HCO3 ABG O2 Saturation ABG Base Excess FiO2 Urine Color DANNY Urine Appearance CLOUDY Urine pH 5.0 Ur Specific [place] 1.017 Urine Protein 100 H Urine Glucose (UA) NEGATIVE Urine Ketones NEGATIVE Urine Blood LARGE H Urine Nitrite NEGATIVE Ur Leukocyte Esterase NEGATIVE Blood Type A POSITIVE Antibody Screen NEGATIVE 03/25/19 03/25/19 14:01 14:18 WBC 11.0 H RBC 3.08 L Hgb 9.7 L D Hct 27.9 L MCV 91 MCH 31.5 MCHC 34.8 RDW 13.6 Plt Count 274 Seg Neutrophils % 71.6 Carbonic Acid 0.91 L HCO3/H2CO3 Ratio 20:1 ABG pH 7.41 ABG pCO2 30.2 L ABG pO2 144.0 H ABG HCO3 18.8 L ABG O2 Saturation 98.9 H ABG Base Excess -4.8 FiO2 4L Urine Color Urine Appearance Urine pH Ur Specific [place] Urine Protein Urine Glucose (UA) Urine Ketones Urine Blood Urine Nitrite Ur Leukocyte Esterase Blood Type Antibody Screen EKG: EKG: sinus tachycardia, mild ST depression in the anterior leads, no ST elevation All labs, radiographs, diagnostic studies and EKGs were personally reviewed: Yes Critical Time Critical Time (minutes): 50 -: The care of a critically ill patient is dynamic. This note represents a static moment in the admission process. Orders and treatments may be given simultaneously and urgently, and time is not automotive sales representative of the treatment process. This patient requires Critical Care secondary to life threatening organ or limb dysfunction. Without Critical Care services, the patient is at risk for increased mortality and morbidity. Provider Note Provider Note: Assessment: critically ill 24 yo woman s/p at 38 weeks, post-operative hypotension Plan: 1. Respiratory: respiratory distress. Will start supplemental oxygen. Will check CXR 2. CV: hypotension, s/p . Pt has received multiple boluses of IVF on the medical floor. SBP in the 110s. Repeat H/h pending 3. OB: s/p at 38 weeks. D/W Dr. Mariee. Repeat CBC pending 4. Pain: pt appears to be very sensitive to narcotic pain meds as they cause hypotension. Will try to minimize use of narcotics while optimizing her pain control. Will start prn toradol and IV tylenol 5. Will check CBC, Chemistries 6. Prophylaxis: scds. 7. Family at bedside. Updated on pt condition and plan of care. Critical care time= 50 min, excluding procedures
[2019-03-25] MEDS ORDERED: KETOROLAC TROMETHAMINE INJ/PF 30 MG/1 ML SDV IV PRN (19:05)
[2019-03-25 19:06] LABS: HEMATOCRIT 27.5 % (36.0-47.0); HEMOGLOBIN 9.3 g/dL (12.0-15.5); MEAN CORPUSCULAR HEMOGLOBIN 30.7 pg (27.0-33.4); MEAN CORPUSCULAR VOLUME 90 fl (80-97); PLATELET COUNT 250 10^3/uL (150-450); RED BLOOD COUNT 3.05 10^6/uL (3.72-5.28); RED CELL DISTRIBUTION WIDTH 13.4 % (11.5-14.0); WHITE BLOOD COUNT 13.8 10^3/uL (4.0-10.5)
--- NOTE | 2019-03-25 19:17 | RADIOLOGY REPORT (SQ) ---
EXAM DESCRIPTION: CHEST SINGLE VIEW COMPLETED DATE/TIME: 03/25/2019 7:03 pm REASON FOR STUDY: shortness of breath COMPARISON: None. EXAM PARAMETERS: NUMBER OF VIEWS: One view. TECHNIQUE: Single frontal radiographic view of the chest acquired. RADIATION DOSE: NA LIMITATIONS: None. FINDINGS: LUNGS AND PLEURA: No opacities, masses or pneumothorax. No pleural effusion. MEDIASTINUM AND HILAR STRUCTURES: No masses. Contour normal. HEART AND VASCULAR STRUCTURES: Heart normal in size. Normal vasculature. BONES: No acute findings. HARDWARE: None in the chest. OTHER: No other significant finding. IMPRESSION: NO ACUTE RADIOGRAPHIC FINDING IN THE CHEST. TECHNICAL DOCUMENTATION: JOB ID: [id number] [employer]- All Rights Reserved Reading location - IP/workstation name: [email or web address]
[2019-03-25 20:07] LABS: ANION GAP 9 (5-19); BLOOD UREA NITROGEN 5 mg/dL (7-20); CALCIUM 8.6 mg/dL (8.4-10.2); CARBON DIOXIDE 19 mmol/L (22-30); CHLORIDE 106 mmol/L (98-107); GLUCOSE 116 mg/dL (75-110); POTASSIUM 3.8 mmol/L (3.6-5.0)
[2019-03-25] MEDS: KETOROLAC TROMETHAMINE INJ/PF 30 MG/1 ML SDV IV PRN (20:40)
[2019-03-25 22:34] LABS: HEMATOCRIT 26.5 % (36.0-47.0); HEMOGLOBIN 9.1 g/dL (12.0-15.5); MEAN CORPUSCULAR HEMOGLOBIN 30.7 pg (27.0-33.4); MEAN CORPUSCULAR HGB CONC 34.1 g/dL (32.0-36.0); MEAN CORPUSCULAR VOLUME 90 fl (80-97); PLATELET COUNT 265 10^3/uL (150-450); RED BLOOD COUNT 2.96 10^6/uL (3.72-5.28); RED CELL DISTRIBUTION WIDTH 13.5 % (11.5-14.0); WHITE BLOOD COUNT 13.6 10^3/uL (4.0-10.5)
[2019-03-26] MEDS: HYDROMORPHONE HCL INJ/PF 2 MG/ML AMPULE IV PRN ×4 (01:06→18:55)
[2019-03-26 02:10] LABS: HEMATOCRIT 24.1 % (36.0-47.0); HEMOGLOBIN 8.2 g/dL (12.0-15.5); MEAN CORPUSCULAR HEMOGLOBIN 30.9 pg (27.0-33.4); MEAN CORPUSCULAR VOLUME 91 fl (80-97); PLATELET COUNT 268 10^3/uL (150-450); RED BLOOD COUNT 2.65 10^6/uL (3.72-5.28); RED CELL DISTRIBUTION WIDTH 13.9 % (11.5-14.0); WHITE BLOOD COUNT 12.4 10^3/uL (4.0-10.5)
[2019-03-26] MEDS: KETOROLAC TROMETHAMINE INJ/PF 30 MG/1 ML SDV IV PRN ×2 (03:47→09:53)
[2019-03-26] MEDS: IBUPROFEN 800 MG TABLET PO SCH ×3 (06:29→21:44)
[2019-03-26 06:40] LABS: HEMATOCRIT 22.5 % (36.0-47.0); MEAN CORPUSCULAR HEMOGLOBIN 31.1 pg (27.0-33.4); MEAN CORPUSCULAR HGB CONC 34.8 g/dL (32.0-36.0); MEAN CORPUSCULAR VOLUME 89 fl (80-97); PLATELET COUNT 247 10^3/uL (150-450); RED BLOOD COUNT 2.52 10^6/uL (3.72-5.28); RED CELL DISTRIBUTION WIDTH 13.6 % (11.5-14.0); WHITE BLOOD COUNT 11.2 10^3/uL (4.0-10.5)
[2019-03-26 06:50] LABS: HEMOGLOBIN 7.9 g/dL (12.0-15.5)
[2019-03-26] MEDS: ACETAMINOPHEN 1,000 MG/100 ML RTUPB IV PRN ×2 (08:18→15:47)
[2019-03-26] MEDS: PRENATAL VITAMIN W DHA CAPSULE PO SCH (09:53)
[2019-03-26] MEDS: DOCUSATE SODIUM 100 MG CAPSULE PO SCH ×3 (09:54→18:02)
--- NOTE | 2019-03-26 10:01 | PDOC CRITICAL CARE PROG REPORT ---
General Date:: 03/26/19 - Critical Care Attending Events in the past 12 to 24 Hours:: Pt still c/o post-op pain. No episodes of hypotension overnight. Reason for ICU Addmission:: Hypotension, s/p - Medications: Medications reviewed and adjusted accordingly: Yes Physical Exam Vital Signs: Temp Pulse Resp BP Pulse Ox 99.0 F 111 H 31 H 102/65 95 03/26/19 08:00 03/26/19 08:00 03/26/19 08:00 03/26/19 08:00 03/26/19 08:00 Intake & Output 03/25/19 03/26/19 03/27/19 06:59 06:59 06:59 Intake Total 200 100 Output Total 475 Balance -275 100 Weight 101 kg 103.1 kg Weight/Height Weight 103.1 kg Height 5 ft 8 in General appearance: PRESENT: no acute distress, well-developed, well-nourished Head exam: PRESENT: atraumatic, normocephalic Respiratory exam: PRESENT: clear to auscultation darron, unlabored Cardiovascular exam: PRESENT: RRR GI/Abdominal exam: PRESENT: distended, tenderness, other - incision site c/D/I Gentrourinary exam: PRESENT: other - scant bloody vaginal discharge Extremities exam: PRESENT: other - trace edema Neurological exam: PRESENT: alert, awake Laboratory/Radiographs Laboratory Results: 03/26/19 06:09 03/25/19 19:18 03/25/19 03/25/19 03/25/19 14:01 14:18 18:36 WBC 11.0 H 13.8 H RBC 3.08 L 3.05 L Hgb 9.7 L D 9.3 L Hct 27.9 L 27.5 L MCV 91 90 MCH 31.5 30.7 MCHC 34.8 34.0 RDW 13.6 13.4 Plt Count 274 250 Seg Neutrophils % 71.6 Carbonic Acid 0.91 L HCO3/H2CO3 Ratio 20:1 ABG pH 7.41 ABG pCO2 30.2 L ABG pO2 144.0 H ABG HCO3 18.8 L ABG O2 Saturation 98.9 H ABG Base Excess -4.8 FiO2 4L Sodium Potassium Chloride Carbon Dioxide Anion Gap BUN Creatinine Est GFR ( Amer) Glucose Calcium 03/25/19 03/25/19 03/26/19 19:18 22:13 02:04 WBC 13.6 H 12.4 H RBC 2.96 L 2.65 L Hgb 9.1 L 8.2 L Hct 26.5 L 24.1 L MCV 90 91 MCH 30.7 30.9 MCHC 34.1 34.0 RDW 13.5 13.9 Plt Count 265 268 Seg Neutrophils % Carbonic Acid HCO3/H2CO3 Ratio ABG pH ABG pCO2 ABG pO2 ABG HCO3 ABG O2 Saturation ABG Base Excess FiO2 Sodium 133.6 L Potassium 3.8 Chloride 106 Carbon Dioxide 19 L Anion Gap 9 BUN 5 L Creatinine 0.41 L Est GFR ( Amer) > 60 Glucose 116 H Calcium 8.6 03/26/19 06:09 WBC 11.2 H RBC 2.52 L Hgb 7.9 L Hct 22.5 L MCV 89 MCH 31.1 MCHC 34.8 RDW 13.6 Plt Count 247 Seg Neutrophils % Carbonic Acid HCO3/H2CO3 Ratio ABG pH ABG pCO2 ABG pO2 ABG HCO3 ABG O2 Saturation ABG Base Excess FiO2 Sodium Potassium Chloride Carbon Dioxide Anion Gap BUN Creatinine Est GFR ( Amer) Glucose Calcium 03/25/19 19:18 Troponin I < 0.012 Impressions: Chest X-Ray 03/25/19 18:22 IMPRESSION: NO ACUTE RADIOGRAPHIC FINDING IN THE CHEST. Assessment and Plan - Diagnosis (1) 38 weeks gestation of Is this a current diagnosis for this admission?: Yes (2) S/P Is this a current diagnosis for this admission?: Yes (3) Hypotension Is this a current diagnosis for this admission?: Yes Plan Summary: Assessment: critically ill 24 yo woman s/p at 38 weeks, post-operative hypotension Plan: 1. Respiratory: stable on room air 2. CV: hypotension, s/p , resolved. SBP in the 110s. Has gotten a large amount of IVF 3. OB: s/p at 38 weeks. D/W Dr. Mariee. anemia, due to interoperative blood loss as well as hemodiution. Pt is not actively bleeding. Operative site is c/d/i. Pt only have scant bloody vaginal discharge. Hg this am is 7.9. Will repeat CBC. If Hg drops, will transfuse PRBC. 4. Pain: pt appears to be very sensitive to narcotic pain meds as they cause hypotension. Will try to minimize use of narcotics while optimizing her pain control. Will start prn toradol and IV tylenol 5. Prophylaxis: scds. 6. Will get pt out of bed to chair today. 7. Disposition: of hg remains stable and BP remains acceptable will transfer to telemetry bed later today. Critical Time Critical Time (minutes): 0 Level of Care: TELE -: 1. The care of a critical patient is a dynamic process. This note is a termite control representative synopsis but static in nature. The timeframe for treatments given in order is not necessarily the actual time these treatments may have been done. 2. This patient requires critical care secondary to ongoing requirements for therapy not offered or safe outside the critical care environment. Transfer to a lower level of care will result in altered life or limb morbidity and mortality. 3. Multidisciplinary rounds completed. 4. ABCDE bundle addressed.
[2019-03-26 11:03] LABS: HEMATOCRIT 23.4 % (36.0-47.0); MEAN CORPUSCULAR HEMOGLOBIN 30.6 pg (27.0-33.4); MEAN CORPUSCULAR HGB CONC 34.2 g/dL (32.0-36.0); MEAN CORPUSCULAR VOLUME 90 fl (80-97); PLATELET COUNT 255 10^3/uL (150-450); RED BLOOD COUNT 2.61 10^6/uL (3.72-5.28); RED CELL DISTRIBUTION WIDTH 14.1 % (11.5-14.0); WHITE BLOOD COUNT 10.1 10^3/uL (4.0-10.5)
--- NOTE | 2019-03-26 12:45 | Progress Note ---
Provider Note Provider Note: Repeat Hg is 8.0. SBP has been in the 110s-120s. Spoke with Dr. Mariee. Ok to transfer to the post- floor. Dr. Salazar is on for OB today. Dr. Mariee said she will notify Dr. Salazar.
--- NOTE | 2019-03-26 14:24 | EKG REPORT ---
SEVERITY:- ABNORMAL ECG - INCOMPLETE ANALYSIS DUE TO MISSING DATA IN PRECORDIAL LEAD(S) SINUS TACHYCARDIA LEFT ANTERIOR FASCICULAR BLOCK BORDERLINE T ABNORMALITIES, ANT-LAT LEADS : Confirmed by: Latesha Neves 26-Mar-2019 14:23:06
[2019-03-26] MEDS: OXYCODONE-ACETAMINOPHEN 5-325 MG TABLET PO PRN (14:39)
[2019-03-26 18:15] LABS: HEMOGLOBIN 8.4 g/dL (12.0-15.5); MEAN CORPUSCULAR HEMOGLOBIN 31.4 pg (27.0-33.4); MEAN CORPUSCULAR HGB CONC 34.8 g/dL (32.0-36.0); MEAN CORPUSCULAR VOLUME 90 fl (80-97); PLATELET COUNT 271 10^3/uL (150-450); RED BLOOD COUNT 2.67 10^6/uL (3.72-5.28); RED CELL DISTRIBUTION WIDTH 13.9 % (11.5-14.0); WHITE BLOOD COUNT 11.2 10^3/uL (4.0-10.5)
--- NOTE | 2019-03-26 18:49 | PDOC PROGRESS REPORT ---
Subjective Progress Note for:: 03/26/19 Subjective:: Pt states that she feels. Decreasing lochia. Denies CP, SOB, F/C and N/V. Reason For Visit: / SECTION Physical Exam - Physical Exam Vital Signs: Temp Pulse Resp BP Pulse Ox 98.2 F 106 H 20 111/66 97 03/26/19 14:14 03/26/19 14:14 03/26/19 14:14 03/26/19 14:14 03/26/19 14:14 Intake & Output 03/25/19 03/26/19 03/27/19 06:59 06:59 06:59 Intake Total 200 100 Output Total 475 0 Balance -275 100 Weight 101 kg 103.1 kg General appearance: PRESENT: no acute distress Respiratory exam: PRESENT: clear to auscultation darron Cardiovascular exam: PRESENT: RRR GI/Abdominal exam: PRESENT: normal bowel sounds, soft Extremities exam: ABSENT: calf tenderness, clubbing, full ROM, joint swelling, pedal edema, tenderness, +1 edema, +2 edema, other Result Laboratory Results: 03/26/19 18:00 03/25/19 19:18 03/25/19 03/25/19 03/25/19 18:36 19:18 22:13 WBC 13.8 H 13.6 H RBC 3.05 L 2.96 L Hgb 9.3 L 9.1 L Hct 27.5 L 26.5 L MCV 90 90 MCH 30.7 30.7 MCHC 34.0 34.1 RDW 13.4 13.5 Plt Count 250 265 Sodium 133.6 L Potassium 3.8 Chloride 106 Carbon Dioxide 19 L Anion Gap 9 BUN 5 L Creatinine 0.41 L Est GFR ( Amer) > 60 Glucose 116 H Calcium 8.6 03/26/19 03/26/19 03/26/19 02:04 06:09 10:43 WBC 12.4 H 11.2 H 10.1 RBC 2.65 L 2.52 L 2.61 L Hgb 8.2 L 7.9 L 8.0 L Hct 24.1 L 22.5 L 23.4 L MCV 91 89 90 MCH 30.9 31.1 30.6 MCHC 34.0 34.8 34.2 RDW 13.9 13.6 14.1 H Plt Count 268 247 255 Sodium Potassium Chloride Carbon Dioxide Anion Gap BUN Creatinine Est GFR ( Amer) Glucose Calcium 03/26/19 18:00 WBC 11.2 H RBC 2.67 L Hgb 8.4 L Hct 24.0 L MCV 90 MCH 31.4 MCHC 34.8 RDW 13.9 Plt Count 271 Sodium Potassium Chloride Carbon Dioxide Anion Gap BUN Creatinine Est GFR ( Amer) Glucose Calcium 03/25/19 19:18 Troponin I < 0.012 Impressions: Chest X-Ray 03/25/19 18:22 IMPRESSION: NO ACUTE RADIOGRAPHIC FINDING IN THE CHEST. Assessment & Plan - Diagnosis (2) Hypotension Is this a current diagnosis for this admission?: Yes (3) S/P Is this a current diagnosis for this admission?: Yes (4) Depression Qualifiers: Major depression episode severity: moderate Is this a current diagnosis for this admission?: Yes (5) GBS (group B Streptococcus carrier), +RV culture, currently Is this a current diagnosis for this admission?: Yes - Time Time Spent with patient: 15-24 minutes Within: within 24 hours - Plan Summary Plan Summary: 1. Continue care
[2019-03-26] MEDS: SIMETHICONE 80 MG TAB.CHEW PO PRN (18:54)
[2019-03-26] MEDS ORDERED: IRON SUCROSE COMPLEX INJ/PF 100 MG/5 ML SDV IV ONE (19:30)
[2019-03-27] MEDS: HYDROMORPHONE HCL INJ/PF 2 MG/ML AMPULE IV PRN (00:46)
[2019-03-27] MEDS: SIMETHICONE 80 MG TAB.CHEW PO PRN ×2 (00:56→08:25)
[2019-03-27 02:49] LABS: HEMATOCRIT 21.6 % (36.0-47.0); MEAN CORPUSCULAR HEMOGLOBIN 30.7 pg (27.0-33.4); MEAN CORPUSCULAR HGB CONC 34.2 g/dL (32.0-36.0); MEAN CORPUSCULAR VOLUME 90 fl (80-97); PLATELET COUNT 266 10^3/uL (150-450); RED CELL DISTRIBUTION WIDTH 13.9 % (11.5-14.0); WHITE BLOOD COUNT 11.9 10^3/uL (4.0-10.5)
[2019-03-27 02:52] LABS: HEMOGLOBIN 7.4 g/dL (12.0-15.5)
[2019-03-27] MEDS ORDERED: NORMAL SALINE 250 ML IV PRN (03:32)
[2019-03-27] MEDS: IBUPROFEN 800 MG TABLET PO SCH ×3 (05:31→21:39)
--- NOTE | 2019-03-27 09:23 | PDOC PROGRESS REPORT ---
Subjective Progress Note for:: 03/25/19 - 1515-Late entry Subjective:: Called to patients room for Rapid response. She is a who just arrived out of the PACU s/p PCS for macrosomia . She delivered a 10 lb 2 oz male infant and surgery was uncomplicated. Nurse was asssisting her to sit up to eat and she became faint. Head of bed was lowered and patient became unresponsive. On my arrival she was pale regular respirations and a normal pulse. B/p was in 70s systolic. She was unable to answere questions without stimulation. IVFs bolused at 999 cc/hr and a second IV was started. Hospitalist in attendance as well as ICU and nursing. Patients pupils were pinpoint. Per PRODUCT APPLICATIONS ENGINEER she was given 100mcg fentanyl proir to exiting the PACU. Family in room states that everyone in familiy is very sensitive to narcotics. Narcan given and patient became more responsive. EKG done and was NSR. Continued IVF bolus. Patient became oriented x 3 quickly after Narcan. Fundus firm. Incision dry. Abdomen soft. Minimal vaginal bleeding on pads under patient. Bimanual exam done and firm fundus noted at 1 cm below umbilicus. No clots in vaginal vault. O2 SAT normal but O2 via nasal canula continued. Labs obtained. Her Hgb prior to PCS was 12.4 . Hgb had dropped to 9.7 which seems appropriate given 950 cc blood loss during PCS and in PACU. She is also recieving IVF bolus 1000cc x2 at time of labs. B/P became more stable at PACU baseline between 100-110 systolic. Blood gases okay-decrease NC to 2 L Plan to continue VS Q 30 minutes and monitor. Stable now Reason For Visit: / SECTION Physical Exam - Physical Exam Vital Signs: Temp Pulse Resp BP Pulse Ox 98.5 F 126 H 16 101/59 L 96 03/27/19 07:48 03/27/19 08:37 03/27/19 08:37 03/27/19 08:37 03/27/19 08:37 Intake & Output 03/26/19 03/27/19 03/28/19 06:59 06:59 06:59 Intake Total 200 1100 Output Total 475 0 Balance -275 1100 Weight 103.1 kg Respiratory exam: PRESENT: clear to auscultation darron, tachypnea Cardiovascular exam: PRESENT: RRR, +S1, +S2 Pulses: PRESENT: normal carotid pulses Result Laboratory Results: 03/27/19 02:32 03/25/19 19:18 03/25/19 03/26/19 03/26/19 08:14 10:43 18:00 WBC 10.1 11.2 H RBC 2.61 L 2.67 L Hgb 8.0 L 8.4 L Hct 23.4 L 24.0 L MCV 90 90 MCH 30.6 31.4 MCHC 34.2 34.8 RDW 14.1 H 13.9 Plt Count 255 271 Blood Type A POSITIVE Antibody Screen NEGATIVE 03/27/19 02:32 WBC 11.9 H RBC 2.40 L Hgb 7.4 L Hct 21.6 L MCV 90 MCH 30.7 MCHC 34.2 RDW 13.9 Plt Count 266 Blood Type Antibody Screen 03/25/19 19:18 Troponin I < 0.012 Impressions: Chest X-Ray 03/25/19 18:22 IMPRESSION: NO ACUTE RADIOGRAPHIC FINDING IN THE CHEST. Assessment & Plan - Time Time Spent with patient: 35 or more minutes
--- NOTE | 2019-03-27 09:30 | PDOC PROGRESS REPORT ---
Subjective Progress Note for:: 03/25/19 Subjective:: Called by Nursing staff. Patient with low b/p in 70s systolic. On arrival to room patient which took appproximately 2-3 minutes as I was on the floor and Pt was awake, oriented x 3 and b/p was 105 systolic. She was tachypneic with NC still in place 2 L O2 Pulse in 90s. Good capillary refill. Patient had sat up again and appears to have became hypotensive again. BS earlier at Rapid response was 90. I asked about BS again but mother of patient in room states: "She just ate a lot of her dinner tray" and showed me the consumed tray. O2 sat 100%. No further hypotens ion. Exam normal and minmal blood on pads under patient, fundus firm and abdomen soft. Incison intact. Discussd with patient and family. Feel she would benefit from closer observation in ICU until more stable. Will repeat HGB at 0600 and Q [address] Florian in ICU who kindly accepted care for this patient. Reason For Visit: / SECTION Physical Exam - Physical Exam Vital Signs: Temp Pulse Resp BP Pulse Ox 98.5 F 126 H 16 101/59 L 96 03/27/19 07:48 03/27/19 08:37 03/27/19 08:37 03/27/19 08:37 03/27/19 08:37 Intake & Output 03/26/19 03/27/19 03/28/19 06:59 06:59 06:59 Intake Total 200 1100 300 Output Total 475 0 Balance -275 1100 300 Weight 103.1 kg Result Laboratory Results: 03/27/19 02:32 03/25/19 19:18 03/25/19 03/26/19 03/26/19 08:14 10:43 18:00 WBC 10.1 11.2 H RBC 2.61 L 2.67 L Hgb 8.0 L 8.4 L Hct 23.4 L 24.0 L MCV 90 90 MCH 30.6 31.4 MCHC 34.2 34.8 RDW 14.1 H 13.9 Plt Count 255 271 Blood Type A POSITIVE Antibody Screen NEGATIVE 03/27/19 02:32 WBC 11.9 H RBC 2.40 L Hgb 7.4 L Hct 21.6 L MCV 90 MCH 30.7 MCHC 34.2 RDW 13.9 Plt Count 266 Blood Type Antibody Screen 03/25/19 19:18 Troponin I < 0.012 Impressions: Chest X-Ray 03/25/19 18:22 IMPRESSION: NO ACUTE RADIOGRAPHIC FINDING IN THE CHEST. Assessment & Plan - Time Time Spent with patient: 25-34 minutes
--- NOTE | 2019-03-27 09:53 | PDOC PROGRESS REPORT ---
Subjective-OB Progress Note for:: 03/27/19 Subjective: Pt doing well now, receiving PRBCs. She has been ambulatory, reports light bleeding, reg diet, voiding without difficulty and is passing gas. Pain is controlled. Physical Exam (OB) Vital Signs: Temp Pulse Resp BP Pulse Ox 98.6 F 111 H 16 99/64 L 98 03/27/19 09:26 03/27/19 09:26 03/27/19 09:26 03/27/19 09:26 03/27/19 09:26 Intake & Output 03/26/19 03/27/19 03/28/19 06:59 06:59 06:59 Intake Total 200 1100 300 Output Total 475 0 Balance -275 1100 300 Weight 103.1 kg - PIH/Pre-Eclampsia DTR's: 1 + Clonus: Negative Headache: Absent Epigastric Pain: No Visual Changes: No - Dressing Removed: No Incision: Well Approximated Closure Type: Surgical Glue - Abdomen Description: Soft, Round Hernia Present: No Fundal Description: Firm, Midline Fundal Height: u/u - u/2 Objective-Diagnostic Laboratory: 03/27/19 02:32 03/25/19 19:18 03/25/19 03/26/19 03/26/19 08:14 10:43 18:00 WBC 10.1 11.2 H RBC 2.61 L 2.67 L Hgb 8.0 L 8.4 L Hct 23.4 L 24.0 L MCV 90 90 MCH 30.6 31.4 MCHC 34.2 34.8 RDW 14.1 H 13.9 Plt Count 255 271 Blood Type A POSITIVE Antibody Screen NEGATIVE 03/27/19 02:32 WBC 11.9 H RBC 2.40 L Hgb 7.4 L Hct 21.6 L MCV 90 MCH 30.7 MCHC 34.2 RDW 13.9 Plt Count 266 Blood Type Antibody Screen 03/25/19 19:18 Troponin I < 0.012 Assessment and Plan(PN) - Assessment and Plan (1) Acute postoperative anemia due to greater than expected blood loss Is this a current diagnosis for this admission?: Yes (2) 38 weeks gestation of Is this a current diagnosis for this admission?: Yes (3) Hypotension Qualifiers: Hypotension type: unspecified hypotension type Qualified Code(s): I95.9 - Hypotension, unspecified Is this a current diagnosis for this admission?: Yes (4) S/P Is this a current diagnosis for this admission?: Yes (5) GBS (group B Streptococcus carrier), +RV culture, currently Is this a current diagnosis for this admission?: Yes - Time Spent with Patient Time with patient: Less than 15 minutes Medications reviewed and adjusted accordingly: Yes - Disposition Anticipated Discharge: Home Within: within 24 hours
[2019-03-27] MEDS: PRENATAL VITAMIN W DHA CAPSULE PO SCH (11:19)
[2019-03-27] MEDS: DOCUSATE SODIUM 100 MG CAPSULE PO SCH ×2 (11:19→17:12)
[2019-03-27 16:12] LABS: HEMATOCRIT 26.8 % (36.0-47.0); HEMOGLOBIN 9.3 g/dL (12.0-15.5); MEAN CORPUSCULAR HEMOGLOBIN 31.3 pg (27.0-33.4); MEAN CORPUSCULAR HGB CONC 34.7 g/dL (32.0-36.0); MEAN CORPUSCULAR VOLUME 90 fl (80-97); PLATELET COUNT 280 10^3/uL (150-450); RED BLOOD COUNT 2.98 10^6/uL (3.72-5.28); RED CELL DISTRIBUTION WIDTH 13.8 % (11.5-14.0)
[2019-03-28] MEDS: IBUPROFEN 800 MG TABLET PO SCH ×2 (06:20→13:56)
--- NOTE | 2019-03-28 11:10 | PDOC PROGRESS REPORT ---
Subjective-OB Progress Note for:: 03/28/19 Subjective: Doing well, ready to go home, minimal pain, passing gas, voiding, abd soft, incision intact Physical Exam (OB) Vital Signs: Temp Pulse Resp BP Pulse Ox 97.8 F 80 16 114/62 98 03/28/19 08:00 03/28/19 08:00 03/28/19 08:00 03/28/19 08:00 03/28/19 08:00 Intake & Output 03/27/19 03/28/19 03/29/19 06:59 06:59 06:59 Intake Total 1100 650 540 Output Total 0 Balance 1100 650 540 - PIH/Pre-Eclampsia DTR's: 2 + Clonus: Negative Headache: Absent Epigastric Pain: No Visual Changes: No - Dressing Removed: No Incision: Well Approximated Closure Type: Surgical Glue - Lochia Lochia Amount: Small 10-25 ml Lochia Color: Rubra/Red - Abdomen Description: Firm, Round Hernia Present: No Fundal Description: Firm Describe if Not Midline: refused fundal rubs Fundal Height: u/u - u/2 Objective-Diagnostic Laboratory: 03/27/19 16:04 03/25/19 19:18 03/27/19 16:04 WBC 11.0 H RBC 2.98 L Hgb 9.3 L Hct 26.8 L MCV 90 MCH 31.3 MCHC 34.7 RDW 13.8 Plt Count 280 03/25/19 19:18 Troponin I < 0.012 Assessment and Plan(PN) - Assessment and Plan (1) 38 weeks gestation of Is this a current diagnosis for this admission?: Yes (2) Acute postoperative anemia due to greater than expected blood loss Is this a current diagnosis for this admission?: Yes (3) Hypotension Qualifiers: Hypotension type: unspecified hypotension type Qualified Code(s): I95.9 - H ypotension, unspecified Is this a current diagnosis for this admission?: Yes (4) S/P Is this a current diagnosis for this admission?: Yes (5) Depression Qualifiers: Major depression episode severity: moderate Is this a current diagnosis for this admission?: Yes (6) GBS (group B Streptococcus carrier), +RV culture, currently Is this a current diagnosis for this admission?: Yes - Time Spent with Patient Time with patient: Less than 15 minutes Medications reviewed and adjusted accordingly: Yes - Disposition Anticipated Discharge: Home Within: within 24 hours
--- NOTE | 2019-03-28 11:14 | PDOC DISCHARGE SUMMARY ---
Impression - Admit/DC Date/PCP Admission Date/Primary Care Provider: 03/25/19 06:33 MACKENZIE RIVERA CNM Discharge Date: 03/28/19 - Discharge Diagnosis (1) 38 weeks gestation of Is this a current diagnosis for this admission?: Yes (2) Acute postoperative anemia due to greater than expected blood loss Is this a current diagnosis for this admission?: Yes (3) Hypotension Is this a current diagnosis for this admission?: Yes (4) S/P Is this a current diagnosis for this admission?: Yes (5) Depression Is this a current diagnosis for this admission?: Yes (6) GBS (group B Streptococcus carrier), +RV culture, currently Is this a current diagnosis for this admission?: Yes - Additional Information Resuscitation Status: Full Code Discharge Diet: As Tolerated, Regular Discharge Activity: Activity As Tolerated, No Lifting/Push/Pulling, Non- Ambulatory Child, Pelvic Rest, No tub bath Referrals: [facility] [Provider Group] (wha next week) Home Medications: Vits96/Iron Fum/Folic [ Tablet] 1 tab PO DAILY 08/31/18 HPI Gestational Age: 38.2 Reason(s) for Admission: Ceasarean Section-Primary, Group B Strep Positive Procedures: NST, Ultrasound Intrapartum Procedure(s): : Low Cervical, Transverse Results Laboratory Results: WBC 11.0 10^3/uL (4.0-10.5) H 03/27/19 16:04 RBC 2.98 10^6/uL (3.72-5.28) L 03/27/19 16:04 Hgb 9.3 g/dL (12.0-15.5) L 03/27/19 16:04 Hct 26.8 % (36.0-47.0) L 03/27/19 16:04 MCV 90 fl (80-97) 03/27/19 16:04 MCH 31.3 pg (27.0-33.4) 03/27/19 16:04 MCHC 34.7 g/dL (32.0-36.0) 03/27/19 16:04 RDW 13.8 % (11.5-14.0) 03/27/19 16:04 Plt Count 280 10^3/uL (150-450) 03/27/19 16:04 Lymph % (Auto) 22.2 % (13-45) 03/25/19 14:18 [place] % (Auto) 5.9 % (3-13) 03/25/19 14:18 Eos % (Auto) 0.1 % (0-6) 03/25/19 14:18 Baso % (Auto) 0.2 % (0-2) 03/25/19 14:18 Absolute Neuts (auto) 7.9 10^3/uL (1.7-8.2) 03/25/19 14:18 Absolute Lymphs (auto) 2.4 10^3/uL (0.5-4.7) 03/25/19 14:18 Absolute Monos (auto) 0.6 10^3/uL (0.1-1.4) 03/25/19 14:18 Absolute Eos (auto) 0.0 10^3/uL (0.0-0.6) 03/25/19 14:18 Absolute Basos (auto) 0.0 10^3/uL (0.0-0.2) 03/25/19 14:18 Seg Neutrophils % 71.6 % (42-78) 03/25/19 14:18 Carbonic Acid 0.91 mmol/L (1.05-1.35) L 03/25/19 14:01 HCO3/H2CO3 Ratio 20:1 03/25/19 14:01 ABG pH 7.41 (7.35-7.45) 03/25/19 14:01 ABG pCO2 30.2 mmHg (35-45) L 03/25/19 14:01 ABG pO2 144.0 mmHg (80-100) H 03/25/19 14:01 ABG HCO3 18.8 mmol/L (20-24) L 03/25/19 14:01 ABG Total CO2 19.7 mmol/L (21-25) L 03/25/19 14:01 ABG O2 Saturation 98.9 % (94-98) H 03/25/19 14:01 ABG Base Excess -4.8 mmol/L 03/25/19 14:01 FiO2 4L 03/25/19 14:01 Sodium 133.6 mmol/L (137-145) L 03/25/19 19:18 Potassium 3.8 mmol/L (3.6-5.0) 03/25/19 19:18 Chloride 106 mmol/L (98-107) 03/25/19 19:18 Carbon Dioxide 19 mmol/L (22-30) L 03/25/19 19:18 Anion Gap 9 (5-19) 03/25/19 19:18 BUN 5 mg/dL (7-20) L 03/25/19 19:18 Creatinine 0.41 mg/dL (0.52-1.25) L 03/25/19 19:18 Est GFR ( Amer) > 60 (>60) 03/25/19 19:18 Est GFR (MDRD) Non-Af > 60 (>60) 03/25/19 19:18 Glucose 116 mg/dL (75-110) H 03/25/19 19:18 POC Glucose 90 mg/dL (70-110) 03/25/19 13:50 Calcium 8.6 mg/dL (8.4-10.2) 03/25/19 19:18 Troponin I < 0.012 ng/mL 03/25/19 19:18 Urine Color DANNY 03/25/19 05:53 Urine Appearance CLOUDY 03/25/19 05:53 Urine pH 5.0 (5.0-9.0) 03/25/19 05:53 Ur Specific [place] 1.017 03/25/19 05:53 Urine Protein 100 mg/dL (NEGATIVE) H 03/25/19 05:53 Urine Glucose (UA) NEGATIVE mg/dL (NEGATIVE) 03/25/19 05:53 Urine Ketones NEGATIVE mg/dL (NEGATIVE) 03/25/19 05:53 Urine Blood LARGE (NEGATIVE) H 03/25/19 05:53 Urine Nitrite NEGATIVE (NEGATIVE) 03/25/19 05:53 Urine Bilirubin NEGATIVE (NEGATIVE) 03/25/19 05:53 Urine Urobilinogen 2.0 mg/dL (<2.0) H 03/25/19 05:53 Ur Leukocyte Esterase NEGATIVE (NEGATIVE) 03/25/19 05:53 Urine Ascorbic Acid NEGATIVE (NEGATIVE) 03/25/19 05:53 Membranes Rupture POSITIVE (NEGATIVE) H 03/25/19 06:00 Urine Opiates Screen NEGATIVE 03/25/19 05:53 Urine Methadone Screen NEGATIVE 03/25/19 05:53 Ur Barbiturates Screen NEGATIVE 03/25/19 05:53 Ur Phencyclidine Scrn NEGATIVE 03/25/19 05:53 Ur Amphetamines Screen NEGATIVE 03/25/19 05:53 U Benzodiazepines Scrn NEGATIVE 03/25/19 05:53 Urine Cocaine Screen NEGATIVE 03/25/19 05:53 U Marijuana (THC) Screen NEGATIVE 03/25/19 05:53 RPR NONREACTIVE (NONREACTIVE) 03/25/19 08:14 Blood Type A POSITIVE 03/25/19 08:14 Blood Type Confirm A POSITIVE 03/25/19 08:14 Antibody Screen NEGATIVE 03/25/19 08:14 Crossmatch See Detail 03/25/19 08:14 03/25/19 19:18 Troponin I < 0.012 Impressions: Chest X-Ray 03/25/19 18:22 IMPRESSION: NO ACUTE RADIOGRAPHIC FINDING IN THE CHEST.
--- NOTE | 2019-03-28 11:20 | PDOC DISCHARGE SUMMARY ---
Impression - Admit/DC Date/PCP Admission Date/Primary Care Provider: 03/25/19 06:33 MACKENZIE RIVERA CNM Discharge Date: 03/28/19 - Discharge Diagnosis (1) 38 weeks gestation of Is this a current diagnosis for this admission?: Yes (2) Acute postoperative anemia due to greater than expected blood loss Is this a current diagnosis for this admission?: Yes (3) Hypotension Is this a current diagnosis for this admission?: Yes (4) S/P Is this a current diagnosis for this admission?: Yes (5) Depression Is this a current diagnosis for this admission?: Yes (6) GBS (group B Streptococcus carrier), +RV culture, currently Is this a current diagnosis for this admission?: Yes - Additional Information Resuscitation Status: Full Code Discharge Diet: As Tolerated, Regular Discharge Activity: Activity As Tolerated, No Lifting/Push/Pulling, Non- Ambulatory Child, Pelvic Rest, No tub bath Referrals: [facility] [Provider Group] (wha next week) Home Medications: Vits96/Iron Fum/Folic [ Tablet] 1 tab PO DAILY 08/31/18 HPI Gestational Age: 38.2 Reason(s) for Admission: Ceasarean Section-Primary, Group B Strep Positive Admission Note: Large infant Procedures: NST, Ultrasound Intrapartum Procedure(s): : Low Cervical, Transverse Hospital Course Hospital Course: sensitive to pain medication, hypotensive, ICU x 24 hours, otherwise routine Results Laboratory Results: WBC 11.0 10^3/uL (4.0-10.5) H 03/27/19 16:04 RBC 2.98 10^6/uL (3.72-5.28) L 03/27/19 16:04 Hgb 9.3 g/dL (12.0-15.5) L 03/27/19 16:04 Hct 26.8 % (36.0-47.0) L 03/27/19 16:04 MCV 90 fl (80-97) 03/27/19 16:04 MCH 31.3 pg (27.0-33.4) 03/27/19 16:04 MCHC 34.7 g/dL (32.0-36.0) 03/27/19 16:04 RDW 13.8 % (11.5-14.0) 03/27/19 16:04 Plt Count 280 10^3/uL (150-450) 03/27/19 16:04 Lymph % (Auto) 22.2 % (13-45) 03/25/19 14:18 [place] % (Auto) 5.9 % (3-13) 03/25/19 14:18 Eos % (Auto) 0.1 % (0-6) 03/25/19 14:18 Baso % (Auto) 0.2 % (0-2) 03/25/19 14:18 Absolute Neuts (auto) 7.9 10^3/uL (1.7-8.2) 03/25/19 14:18 Absolute Lymphs (auto) 2.4 10^3/uL (0.5-4.7) 03/25/19 14:18 Absolute Monos (auto) 0.6 10^3/uL (0.1-1.4) 03/25/19 14:18 Absolute Eos (auto) 0.0 10^3/uL (0.0-0.6) 03/25/19 14:18 Absolute Basos (auto) 0.0 10^3/uL (0.0-0.2) 03/25/19 14:18 Seg Neutrophils % 71.6 % (42-78) 03/25/19 14:18 Carbonic Acid 0.91 mmol/L (1.05-1.35) L 03/25/19 14:01 HCO3/H2CO3 Ratio 20:1 03/25/19 14:01 ABG pH 7.41 (7.35-7.45) 03/25/19 14:01 ABG pCO2 30.2 mmHg (35-45) L 03/25/19 14:01 ABG pO2 144.0 mmHg (80-100) H 03/25/19 14:01 ABG HCO3 18.8 mmol/L (20-24) L 03/25/19 14:01 ABG Total CO2 19.7 mmol/L (21-25) L 03/25/19 14:01 ABG O2 Saturation 98.9 % (94-98) H 03/25/19 14:01 ABG Base Excess -4.8 mmol/L 03/25/19 14:01 FiO2 4L 03/25/19 14:01 Sodium 133.6 mmol/L (137-145) L 03/25/19 19:18 Potassium 3.8 mmol/L (3.6-5.0) 03/25/19 19:18 Chloride 106 mmol/L (98-107) 03/25/19 19:18 Carbon Dioxide 19 mmol/L (22-30) L 03/25/19 19:18 Anion Gap 9 (5-19) 03/25/19 19:18 BUN 5 mg/dL (7-20) L 03/25/19 19:18 Creatinine 0.41 mg/dL (0.52-1.25) L 03/25/19 19:18 Est GFR ( Amer) > 60 (>60) 03/25/19 19:18 Est GFR (MDRD) Non-Af > 60 (>60) 03/25/19 19:18 Glucose 116 mg/dL (75-110) H 03/25/19 19:18 POC Glucose 90 mg/dL (70-110) 03/25/19 13:50 Calcium 8.6 mg/dL (8.4-10.2) 03/25/19 19:18 Troponin I < 0.012 ng/mL 03/25/19 19:18 Urine Color DANNY 03/25/19 05:53 Urine Appearance CLOUDY 03/25/19 05:53 Urine pH 5.0 (5.0-9.0) 03/25/19 05:53 Ur Specific [place] 1.017 03/25/19 05:53 Urine Protein 100 mg/dL (NEGATIVE) H 03/25/19 05:53 Urine Glucose (UA) NEGATIVE mg/dL (NEGATIVE) 03/25/19 05:53 Urine Ketones NEGATIVE mg/dL (NEGATIVE) 03/25/19 05:53 Urine Blood LARGE (NEGATIVE) H 03/25/19 05:53 Urine Nitrite NEGATIVE (NEGATIVE) 03/25/19 05:53 Urine Bilirubin NEGATIVE (NEGATIVE) 03/25/19 05:53 Urine Urobilinogen 2.0 mg/dL (<2.0) H 03/25/19 05:53 Ur Leukocyte Esterase NEGATIVE (NEGATIVE) 03/25/19 05:53 Urine Ascorbic Acid NEGATIVE (NEGATIVE) 03/25/19 05:53 Membranes Rupture POSITIVE (NEGATIVE) H 03/25/19 06:00 Urine Opiates Screen NEGATIVE 03/25/19 05:53 Urine Methadone Screen NEGATIVE 03/25/19 05:53 Ur Barbiturates Screen NEGATIVE 03/25/19 05:53 Ur Phencyclidine Scrn NEGATIVE 03/25/19 05:53 Ur Amphetamines Screen NEGATIVE 03/25/19 05:53 U Benzodiazepines Scrn NEGATIVE 03/25/19 05:53 Urine Cocaine Screen NEGATIVE 03/25/19 05:53 U Marijuana (THC) Screen NEGATIVE 03/25/19 05:53 RPR NONREACTIVE (NONREACTIVE) 03/25/19 08:14 Blood Type A POSITIVE 03/25/19 08:14 Blood Type Confirm A POSITIVE 03/25/19 08:14 Antibody Screen NEGATIVE 03/25/19 08:14 Crossmatch See Detail 03/25/19 08:14 03/25/19 19:18 Troponin I < 0.012 Impressions: Chest X-Ray 03/25/19 18:22 IMPRESSION: NO ACUTE RADIOGRAPHIC FINDING IN THE CHEST. Plan Health Concerns: pain medication Plan of Treatment: d/c home, motrin and tylenol for pain Goals: no complications Time Spent: Less than 30 Minutes
[2019-03-28] MEDS: PRENATAL VITAMIN W DHA CAPSULE PO SCH (11:41)
[2019-03-28] MEDS: DOCUSATE SODIUM 100 MG CAPSULE PO SCH (11:41)
[2019-03-28 12:09] VITALS: BP 118/62
== END 2019-03-28 14:30 | disposition home or self-care (01) | DRG 787 ==
LOC: LC 05:38 → LR 06:33 → 2S 13:34 → ICU 18:53 → 2S 03-26 14:00
PROVIDERS: ADMIT Internal Medicine; ATTEND Obstetrics & Gynecology
PROC: 10D00Z1 Extraction of Products of Conception, Low, Open Approach (ICD-10-PCS; principal; 2019-03-25)
PROC: 30233N1 Transfusion of Nonautologous Red Blood Cells into Peripheral Vein, Percutaneous Approach (ICD-10-PCS; 2019-03-27)
DX: O36.63X0 Maternal care for excessive fetal growth, third trimester, not applicable or unspecified (principal); D62 Acute posthemorrhagic anemia; O99.824 Streptococcus B carrier state complicating childbirth; O26.53 Maternal hypotension syndrome, third trimester; O90.81 Anemia of the puerperium; O99.344 Other mental disorders complicating childbirth; F32.9 Major depressive disorder, single episode, unspecified; Z3A.38 38 weeks gestation of pregnancy; Z37.0 Single live birth
CPT/HCPCS: 1961; 36000; 36415; 36430; 36600; 59025; 71045; 80048; 80307; 81005; 82803; 82962; 84112; 84484; 85025; 85027; 86592; 86850; 86900; 86901; 86920; 93005; 93010; 94799; 99291; J0131; J0456; J0690; J1170; J1756; J1885; J2060; J2310; J2370; J2405; J2590; J3010; J3490; P9016

== ENCOUNTER 2019-04-25 01:06 | Emergency (ER) | payer OTHER, MEDICAID ==
[2019-04-25] MEDS ORDERED: HYDROCODONE/ACETAMINOPHEN 5-325 MG TABLET PO ONE (04:20)
[2019-04-25] MEDS ORDERED: PREDNISONE 20 MG TABLET PO ONE (04:20)
[2019-04-25] MEDS ORDERED: ONDANSETRON 4 MG TAB.RAPDIS PO ONE (04:20)
[2019-04-25] MEDS ORDERED: HYDROCODONE/ACETAMINOPHEN 5-325 MG (6 TAB/ER DISP) PO PRN (04:20)
--- NOTE | 2019-04-25 04:20 | ER Document Report ---
Entered by MAX PASTOR SCRIBE 04/25/19 0410 Acting as scribe for:JULIOCESAR DAVENPORT IV, MD ED General - General Chief Complaint: Nausea/Vomiting/Diarrhea Stated Complaint: SORE THROAT,VOMITING Time Seen by Provider: 04/25/19 03:56 Primary Care Provider: LINNETTE FORD MD [Primary Care Provider] - Follow up as needed Mode of Arrival: Ambulatory Information source: Patient Notes: This 24 year old female patient presents to the ED today with complaints of a sore throat with associated nausea, vomiting, and diarrhea that started x5 days ago. Patient states that the roof of her mouth is swollen and that it feels "like a big bubble". Patient states that her "throat is killing me and it is is hard to eat". Patient also reports cough, nasal congestion, and headache. Patient reports a fever and sweats x2 days ago, but they have since resolved. Patient notes that she had a x1 month ago with mild abdominal pain. TRAVEL OUTSIDE OF THE [place] IN LAST 30 DAYS: No - Related Data Allergies/Adverse Reactions: No Known Allergies Allergy (Verified 03/25/19 05:52) Home Medications: control Past Medical History - General Information source: Patient - Social History Smoking Status: Never Smoker Cigarette use (# per day): No Chew tobacco use (# tins/day): No Smoking Education Provided: No Frequency of alcohol use: None Drug Abuse: None Lives with: Spouse/Significant other Family History: Reviewed & Not Pertinent, Arthritis, DM Patient has suicidal ideation: No Patient has homicidal ideation: No Psychiatric Medical History: Reports: Hx Anxiety, Hx Attention Deficit Hyperactivity Disorder - ADD, Hx Depression Past Surgical History: Reports: Hx Section, Hx Tonsillectomy - Immunizations Immunizations up to date: Yes Hx Diphtheria, Pertussis, Tetanus Vaccination: Yes - 01/02/18 Review of Systems - Review of Systems Constitutional: See HPI, Diaphoresis, Fever EENT: See HPI, Nose congestion, Throat pain Cardiovascular: No symptoms reported Respiratory: See HPI, Cough Gastrointestinal: See HPI, Abdominal pain, Diarrhea, Nausea, Vomiting Genitourinary: No symptoms reported Female Genitourinary: No symptoms reported Musculoskeletal: No symptoms reported Skin: No symptoms reported Hematologic/Lymphatic: No symptoms reported Neurological/Psychological: See HPI, Headaches -: Yes All other systems reviewed and negative Physical Exam - Vital signs Vitals: Temp Pulse Resp BP Pulse Ox 98.9 F 94 20 118/57 L 98 04/25/19 01:28 04/25/19 01:28 04/25/19 01:28 04/25/19 01:28 04/25/19 01:28 - General General appearance: Alert - HEENT Head: Normocephalic, Atraumatic Eyes: Normal Pupils: PERRL Pharynx: Erythema, Other - No trismus. No submandibular swelling.. No: Exudate - Respiratory Respiratory status: No respiratory distress Chest status: Nontender Breath sounds: Normal Chest palpation: Normal - Cardiovascular Rhythm: Regular Heart sounds: Normal auscultation Murmur: No Friction rub: No Gallop: None auscultated - Abdominal Inspection: Normal Distension: No distension Bowel sounds: Normal Tenderness: Nontender - Abdomen soft Organomegaly: No organomegaly - Back Back: Normal, Nontender - Extremities General upper extremity: Normal inspection General lower extremity: Normal inspection - Neurological Neuro grossly intact: Yes - Psychological Associated symptoms: Normal affect, Normal mood - Skin Skin Temperature: Warm Skin Moisture: Dry Skin Color: Normal Course - Re-evaluation Re-evalutation: 04/25/19 04:22 All questions were answered prior to discharge. Emergency signs and symptoms, reasons to return to the emergency department discussed with patient. - Vital Signs Vital signs: Temp Pulse Resp BP Pulse Ox 98.9 F 94 20 118/57 L 98 04/25/19 01:28 04/25/19 01:28 04/25/19 01:28 04/25/19 01:28 04/25/19 01:28 Discharge - Discharge Clinical Impression: Viral gastroenteritis Pharyngitis Qualifiers: Pharyngitis/tonsillitis etiology: unspecified etiology Qualified Code(s): J02.9 - Acute pharyngitis, unspecified Condition: Good Disposition: HOME, SELF-CARE Instructions: Antinausea Medication ([facility]), Gastroenteritis (adult) ([facility]), Sore Throat ([facility]) Additional Instructions: Return to the Emergency Department without delay if any worse. HOME CARE INSTRUCTIONS & INFORMATION: Thank you for choosing us for your medical needs. We hope you're satisfied with the care you received. After you leave, you must properly care for your problem and, at the same time, observe its progress. Any condition can change. Some illnesses can change rapidly over hours or days. If your condition worsens, return to the Emergency Department or see your physician promptly. ABOUT YOUR X-RAYS AND EKG'S: If you had an EKG or X-rays taken, they have been read by the Emergency Physician. The X-rays and EKG's will also be read by a Radiologist or Waistband Setter within 24 hours. If discrepancies are noted, you will be notified by telephone. Please be certain the ED has a correct telephone number & address where you can be reached. Also, realize that some fractures or abnormalities do not show up on initial X-rays. If your symptoms continue, see your physician. ABOUT YOUR LABORATORY TEST: If you had laboratory tests, the results have been reviewed by the Emergency Physician. Some test results (for example cultures) may not be available for several days. You will be contacted if any test result shows you need additional treatment. Please be certain the ED has a correct telephone number and address where you can be reached. ABOUT YOUR MEDICATIONS: You will receive instructions on how to take your medicine on the prescription label you receive. Additional information may be provided by the Pharmacy. If you have questions afterwards, call the ED for clarification or further instructions. Some prescribed medications may cause drowsiness. Do not perform tasks such as driving a car or operating machinery without consulting your Pharmacist. If you feel you need a refill of pain medication, your condition will need re-evaluation. Please do not call for a refill of any medication. ABOUT YOUR SIGNATURE: Signature of this document acknowledges to followin. Understanding that you received emergency treatment and that you may be released before al medical problems are known or treated. Please be certain the ED has a correct phone number & address where you can be reached. 2. Acknowledgement that you will arrange for follow-up care as recommended. 3. Authorization for the Emergency Physician to provide information to your follow-up Physician in order to maximize your care. AT ANY TIME, IF YOUR SYMPTOMS CHANGE SIGNIFICANTLY OR WORSEN OR YOU DEVELOP NEW SYMPTOMS, RETURN TO THE EMERGENCY DEPARTMENT IMMEDIATELY FOR RE-EVALUATION. OUR GOAL IS TO PROVIDE EXCELLENT MEDICAL CARE! WE HOPE THAT WE HAVE MET YOUR EXPECTATIONS DURING YOUR EMERGENCY DEPARTMENT VISIT AND THAT YOU FEEL YOU HAVE RECEIVED EXCELLENT CARE! Prescriptions: Ondansetron [Zofran Odt 4 mg Tablet] 1 tab PO Q8HP PRN #[id number] tab.rapdis PRN Reason: For Nausea/Vomiting Referrals: LINNETTE FORD MD [Primary Care Provider] - Follow up as needed I personally performed the services described in the documentation, reviewed and edited the documentation which was dictated to the scribe in my presence, and it accurately records my words and actions.
[2019-04-25 05:20] VITALS: BP 113/62
== END 2019-04-25 05:26 | disposition home or self-care (01) ==
LOC: ER 01:06
DX: A08.4 Viral intestinal infection, unspecified (principal); J02.9 Acute pharyngitis, unspecified; R11.2 Nausea with vomiting, unspecified; R19.7 Diarrhea, unspecified
CPT/HCPCS: 99282; S0119; J7512

== ENCOUNTER 2020-02-21 22:10 | Emergency (ER) | payer MEDICAID, OTHER ==
[2020-02-21 22:31] VITALS: BP 121/70
--- NOTE | 2020-02-21 23:35 | ER Document Report ---
ED Medical Screen (RME) - General Chief Complaint: Abdominal Cramping Stated Complaint: SEVERE ABDOMINAL CRAMPING Time Seen by Provider: 02/21/20 23:29 Primary Care Provider: LINNETTE FORD MD [Primary Care Provider] - Follow up as needed Mode of Arrival: Ambulatory Information source: Patient Notes: HPI; 25-year-old female who states she is approximately 7 weeks presents to the emergency room complaining of onset of abdominal cramping earlier today. States she got in an argument with the baby's father when she found out that he had been cheating on her. Patient states pain started shortly thereafter. There was no trauma no injury. Patient states she had an ultrasound on the [facility] that was normal. She denies any vaginal bleeding does complain of some discharge. She is a 3 para 2. PE: Alert and oriented x3. Lungs: Clear to auscultation without rales, rhonchi, wheezes. Heart: Regular rate rhythm without murmurs, rubs, gallops. I have greeted and performed a rapid initial assessment of this patient. A comprehensive ED assessment and evaluation of the patient, analysis of test results and completion of the medical decision making process will be conducted by additional ED providers. I have specifically instructed the patient or family members with the patient to immediately return to any nursing staff should anything change in the patient's condition or with their chief complaint. TRAVEL OUTSIDE OF THE [place] IN LAST 30 DAYS: No - Related Data Allergies/Adverse Reactions: No Known Allergies Allergy (Verified 03/25/19 05:52) Past Medical History Renal/ Medical History: Denies: Hx Peritoneal Dialysis Psychiatric Medical History: Reports: Hx Anxiety, Hx Attention Deficit Hyperactivity Disorder - ADD, Hx Depression Past Surgical History: Reports: Hx Section, Hx Tonsillectomy - Immunizations Immunizations up to date: Yes Hx Diphtheria, Pertussis, Tetanus Vaccination: Yes - 01/02/18 Physical Exam - Vital signs Vitals: Temp Pulse Resp BP Pulse Ox 98.3 F 72 19 121/70 98 02/21/20 22:27 02/21/20 22:27 02/21/20 22:27 02/21/20 22:27 02/21/20 22:27 Course - Vital Signs Vital signs: Temp Pulse Resp BP Pulse Ox 98.3 F 72 19 121/70 98 02/21/20 22:27 02/21/20 22:27 02/21/20 22:27 02/21/20 22:27 02/21/20 22:27 Doctor's Discharge - Discharge Referrals: LINNETTE FORD MD [Primary Care Provider] - Follow up as needed
== END 2020-02-22 02:00 | disposition left against medical advice (07) ==
LOC: ER 22:10
DX: O26.91 Pregnancy related conditions, unspecified, first trimester (principal); R10.84 Generalized abdominal pain; Z3A.01 Less than 8 weeks gestation of pregnancy
CPT/HCPCS: 99281

== ENCOUNTER 2020-02-24 11:02 | Emergency (ER) | payer MEDICAID ==
[2020-02-24 11:09] VITALS: BP 104/64
--- NOTE | 2020-02-24 12:26 | ER Document Report ---
ED Medical Screen (RME) - General Chief Complaint: Back Pain Stated Complaint: LOW BACK PAIN Time Seen by Provider: 02/24/20 12:07 TRAVEL OUTSIDE OF THE [place] IN LAST 30 DAYS: No - HPI Notes: 02/24/20 12:20 25-year-old female presents to the emergency room today for complaints of lower back pain after she lifted drywall yesterday, states since that time she has had vaginal numbness and left inner thigh numbness as well as she states she had urinary incontinence this morning, no defecation incontinence. Patient reports she does have a history of bulging disks. Has not tried any [id number] medications. Reports pain is worse with time, nothing makes better. When asked when her last menstrual cycle is, she states she does not get any because she is on the Depo shot. Nurse stated that she is 8 weeks and that is what she told her. Denies any vaginal bleeding vaginal discharge. Consulted with Dr. Carlos mullins, ER supervising physician regarding MRI due to urinary incontinence with having vaginal paresthesia. He did recommend an MRI without contrast. I have greeted and performed a rapid initial assessment of this patient. A comprehensive ED assessment and evaluation of the patient, analysis of test results and completion of the medical decision making process will be conducted by additional ED providers. PHYSICAL EXAMINATION: GENERAL: Well-appearing, well-nourished and in no acute distress. CV: s1, s2 regular LUNGS: No respiratory distress Musculoskeletal:limited APROM. LS spine tenderness on palpation. Noted paraspinal tenderness near L2 and L3. No CVA tenderness bilaterally. NEUROLOGICAL: Normal speech, normal gait. SKIN: Warm, Dry, normal turgor, no rashes or lesions noted. The patient was evaluated during a global COVID-19 pandemic and that diagnosis was suspected/considered upon their initial presentation. Their evaluation, treatment and testing was consistent with current guidelines for patients who present with complaints or symptoms and may be related to COVID-19. - Related Data Allergies/Adverse Reactions: No Known Allergies Allergy (Verified 03/25/19 05:52) Past Medical History - Social History Chew tobacco use (# tins/day): No Frequency of alcohol use: None Drug Abuse: None Renal/ Medical History: Denies: Hx Peritoneal Dialysis Psychiatric Medical History: Reports: Hx Anxiety, Hx Attention Deficit Hyper activity Disorder - ADD, Hx Depression Past Surgical History: Reports: Hx Section, Hx Tonsillectomy - Immunizations Immunizations up to date: Yes Hx Diphtheria, Pertussis, Tetanus Vaccination: Yes - 01/02/18 Physical Exam - Vital signs Vitals: Temp Pulse Resp BP Pulse Ox 98.1 F 79 22 H 104/64 98 02/24/20 11:06 02/24/20 11:06 02/24/20 11:06 02/24/20 11:06 02/24/20 11:06 Course - Vital Signs Vital signs: Temp Pulse Resp BP Pulse Ox 98.1 F 79 22 H 104/64 98 02/24/20 11:06 02/24/20 11:06 02/24/20 11:06 02/24/20 11:06 02/24/20 11:06
[2020-02-24 13:13] LABS: ABSOLUTE EOSINOPHILS # (AUTO) 0.1 10^3/uL (0.0-0.6); ABSOLUTE LYMPHOCYTES (AUTO) 2.1 10^3/uL (0.5-4.7); ABSOLUTE MONOCYTES (AUTO) 0.7 10^3/uL (0.1-1.4); ABSOLUTE NEUT (AUTO) 4.8 10^3/uL (1.7-8.2); BASOPHILS % (AUTO) 0.4 % (0-2); EOSINOPHILS % (AUTO) 0.7 % (0-6); HEMATOCRIT 38.5 % (36.0-47.0); HEMOGLOBIN 13.1 g/dL (12.0-15.5); LYMPHOCYTES % (AUTO) 27.3 % (13-45); MEAN CORPUSCULAR HEMOGLOBIN 29.8 pg (27.0-33.4); MEAN CORPUSCULAR VOLUME 88 fl (80-97); MONOCYTES % (AUTO) 8.6 % (3-13); PLATELET COUNT 318 10^3/uL (150-450); RED BLOOD COUNT 4.39 10^6/uL (3.72-5.28); RED CELL DISTRIBUTION WIDTH 12.7 % (11.5-14.0); TOTAL CELLS COUNTED % (AUTO) 100 %; WHITE BLOOD COUNT 7.6 10^3/uL (4.0-10.5)
[2020-02-24 13:37] LABS: ALBUMIN 4.3 g/dL (3.5-5.0); ALKALINE PHOSPHATASE 60 U/L (38-126); ANION GAP 9 (5-19); ASPARTATE AMINO TRANSFERASE 25 U/L (14-36); BILIRUBIN,DIRECT 0.1 mg/dL (0.0-0.4); BILIRUBIN,TOTAL 0.7 mg/dL (0.2-1.3); BLOOD UREA NITROGEN 8 mg/dL (7-20); CALCIUM 9.6 mg/dL (8.4-10.2); CARBON DIOXIDE 22 mmol/L (22-30); CHLORIDE 103 mmol/L (98-107); GLUCOSE 81 mg/dL (75-110); POTASSIUM 4.5 mmol/L (3.6-5.0); TOTAL PROTEIN 8.1 g/dL (6.3-8.2)
[2020-02-24 13:49] LABS: APPEARANCE,URINE CLOUDY; BILIRUBIN,URINE NEGATIVE (NEGATIVE); COLOR,URINE YELLOW; GLUCOSE, URINE NEGATIVE (NEGATIVE); KETONES,URINE NEGATIVE (NEGATIVE); LEUKOCYTE ESTERASE,URINE TRACE (NEGATIVE); NITRITE,URINE NEGATIVE (NEGATIVE); PROTEIN,URINE NEGATIVE (NEGATIVE); URINE SPECIFIC GRAVITY 1.026; UROBILINOGEN,URINE NEGATIVE mg/dL (<2.0)
== END 2020-02-24 15:10 | disposition left against medical advice (07) ==
LOC: ER 11:02
DX: O26.91 Pregnancy related conditions, unspecified, first trimester (principal); M54.5 Low back pain; R20.0 Anesthesia of skin; R32 Unspecified urinary incontinence; Z3A.08 8 weeks gestation of pregnancy
CPT/HCPCS: 36415; 80053; 81001; 84702; 85025; 99281